=== PATIENT | female | born 1980 ===

== ENCOUNTER 2023-10-16 14:48 | Outpatient (AMB) | payer OTHER, MEDICAID, SELFPAY ==
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
[2023-10-16 15:10] VITALS: BP 116/78; PULSE 82; O2SAT 98; BMI 38.8
== END 2023-10-16 16:49 | disposition home or self-care (01) ==
PROVIDERS: Visit Provider Nurse Practitioner Family
DX: R51.9 Headache, unspecified (principal); R42 Dizziness and giddiness; M54.2 Cervicalgia; M26.609 Unspecified temporomandibular joint disorder, unspecified side; G43.109 Migraine with aura, not intractable, without status migrainosus
CPT/HCPCS: 99204

== ENCOUNTER → 2023-10-16 14:48 | Outpatient (BNVA) | payer OTHER, MEDICAID, SELFPAY | PROVIDERS: Visit Provider Nurse Practitioner Family ==

== ENCOUNTER 2023-12-11 07:23 | Outpatient (AMB) | payer OTHER, MEDICAID, SELFPAY ==
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
[2023-12-11 07:30] VITALS: BP 112/70; PULSE 86; RESP 16; O2SAT 98; BMI 38.4
== END 2023-12-11 08:13 | disposition home or self-care (01) ==
PROVIDERS: PCP Physician Assistant; Visit Provider Nurse Practitioner Family
DX: G43.109 Migraine with aura, not intractable, without status migrainosus (principal); R42 Dizziness and giddiness; M26.609 Unspecified temporomandibular joint disorder, unspecified side; M54.2 Cervicalgia
CPT/HCPCS: 99214

== ENCOUNTER → 2023-12-11 07:23 | Outpatient (BNVA) | payer OTHER, MEDICAID, SELFPAY | PROVIDERS: PCP Physician Assistant; Visit Provider Nurse Practitioner Family ==

== ENCOUNTER 2024-06-30 09:24 | Outpatient (AMB) | payer OTHER, MEDICAID, SELFPAY ==
[2024-06-30 09:33] VITALS: BMI 41.4
--- NOTE | 2024-06-30 09:33 | MHC.OFFVIS ---
Vital Signs 06/30/24 09:33 Height 4 ft 11 in Weight 205 lb BMI 41.4 Intake Visit Reasons: 7 MONTH F/U Intake Note: Patient presents for 7 month follow up. Allergies No Known Allergies Allergy (Verified 06/30/24 09:36) HPI Comments Details: 43-yr-old female presents for f/u visit for migraines. Patient seen by myself with Dr. Krishnan December 2023 started taking 7mg of prednisone daily for PMR, per PCP. She has morning pain and stiffness, shoulders hips, knees, +GUIDO+ ESR + CRP and with inflammation. Jul 2024 will f/u with [facility] Coordinator at [facility]. Pt has started Vaurum which is working well w/o s/e. She is still experiencing 3-4 times a month intense migraines, lasting longer, a few hours, can last over night into the morning. Pain with nausea and dizziness, photophobia and phonophobia and smells. Tender starts behind L. eye and spread back into the head. Vision changes, lids feel heavier, difficult to keep them open, and blurrier vision. RX changed recently. Sleep apnea, Insomnia for years still gets 6-7 hours a night, goes back to sleep, doesn't take anything to get to sleep, could not tolerate CPAP and the mask. She manages migraines with alternative methods also, caps for migraines. Pt still has R > L ear fullness, like water is in the ears. May 2024 ENT. dx with Menieres disease, she monitors salt intake and when it is worse she feels dizzy. Is prone to allergy s/s- not sure if the ear fullness fluctuates w/ allergy s/s. Baclofen 10mg qhs prn is helping. Still wakes up w/ left sided neck tightness/soreness. Can still have bruxism. Has not started using mouthguard yet. Baseline headache characteristics: Aura: Sees floaters in bilateral eyes at onset of the headache. Sometimes has visual aura of right or left seeing wavy lines or kaleidoscope- lasts a minute or so. Headache: Mod-Severe throbbing, stabbing, pressure in left side- retro-orbital, forehead through occipital and neck region a/w Photophobia, phonophobia, allodynia, nausea, dizziness, difficulty concentrating, word finding difficulties- maybe slurred speech, fatigue, activity intolerance. Postdrome: May linger [facility] Surgical History History of thyroid surgery Family History Father Diabetes HTN (hypertension) Mother Diabetes HTN (hypertension) Social History Alcohol intake: never Patient Tobacco Use Status: Never used Tobacco Review of Systems Const All systems reviewed & are unremarkable except as noted in HPI and below Physical Exam Vital Signs: BMI result Body Mass Index 41.4 Const General: cooperative and no acute distress Orientation/consciousness: patient oriented x3 Resp Effort & Inspection: normal respiratory effort and able to speak in complete sentences Neuro General: patient oriented x3 Cranial nerves: Yes CN's II-XII intact bilaterally Cognition (Neuro): normal cognition Psych Appearance: grossly normal Mental Status: mental status grossly normal Speech and movement: Normal speech and movement present Affect: normal affect Attitude: cooperative Results Reviewed Results Reviewed: MRI Normal Discussed Inspire therapy, will consider and research then f/u. Assessment & Plan Assessment & Plan (1) Migraine with aura: Code(s): G43.109 - Migraine with aura, not intractable, without status migrainosus Category: Medical Qualifiers: Status migrainosus presence: without status migrainosus Intractability: intractable Qualified Code(s): G43.119 - Migraine with aura, intractable, without status migrainosus (2) Insomnia: Code(s): G47.00 - Insomnia, unspecified Category: Medical Qualifiers: Insomnia type: unspecified Qualified Code(s): G47.00 - Insomnia, unspecified (3) Worsening headaches: Code(s): R51.9 - Headache, unspecified Category: Medical (4) Vertigo: Code(s): R42 - Dizziness and giddiness Category: Medical Plan HST- Patient continues to have insomnia, Mallampti score is 3, excessive daytime fatigue with headaches. Patient Education- Fragmented sleep can lead to migraines, patient is a good candidate for the iNspire therapy, and will send and ENT f/u for the Dise procedure after HST if patient is interested in this therapy. Migraines- will stop the Naritriptan and start her on Rizatriptan 5mg at onset of migraine, take one tablet and may wait 4 hours if it does not abort you may take one more tablet of the Rizatriptan. Do not exceed more than 2 tablets in a 24 hour period. Will Continue with Migraine Prophylaxis therapy Agovy subcut 1x / month as this is working well, has decreased her migraines from daily attacks to 3-4 per month. Orders: Orders RT home sleep study Today G43.109 - Migraine with aura, not intractable, without status migrainosus, G47.00 - Insomnia, unspecified Medications: New rizatriptan Take one tablet at the onset of migraine, if migraine does not abort may take one more tablet 4 hours later. Do not exceed more than 2 tablets in a 24 hour period. 5 mg PO Q2-4H PRN 14 tabs 6RF migraine headache 30 days Discontinued naratriptan Discontinued Reason: Doctor's Order take 1/2 - 1 tab at onset of headache; if no relief may repeat 1 tab after at least 4 hrs; (may take with Tylenol) max = 2 tabs/24 hrs orally PRN; 12 tabs 6RF migraine headache 30 days MDD 2 tabs Coding Level of Care Code Est Pt Level 4 (39641) Diagnoses Intractable migraine with aura without status migrainosus G43.119 Status migrainosus presence: without status migrainosus Intractability: intractable Insomnia, unspecified type G47.00 Insomnia type: unspecified Worsening headaches R51.9 Vertigo R42
--- OUTSIDE RECORDS SUMMARY | 2024-06-30 23:43 | XMS_ITS | Continuity of Care Document ---
Author Organization [place] - [facility], [facility] 2nd floor Address [address] [place] [address] Care Team Providers Care Room Service Manager Name Role Phone ROMERO LUND Primary Care Provider Assessment No assessment recorded. Plan of Treatment Reminders Order Date Submit Date Provider Last Modified By Organization Details Last Modified Time Details Appointments None recorded. Lab None recorded. Referral None recorded. Procedures None recorded. Surgeries shoulder arthroscopy with subacromial decompressi on and acromioplas ty (SURG) 2023 024 [email or web address] 1 Not available 4 16:35:09 Imaging None recorded. Medication Orders None recorded. Patient TargetsNo targets recorded. Patient InstructionsNo instructions recorded. Reason for Referral None Reported. Results Created Date Observation Date Name Description Value Unit Range Abnormal Flag Note LastModifiedBy Organization Detail LastModifiedTime 06/02/20 24 06/01/2024 MRI, liam korey, w/o contr ast [facility] Access ion Number : [id number] Patien t Name: Lela Verdina l Record Number : [id number] Date of : 1979 Date of Exam: 2023 Referr ing Physic hamida: Anne-Marie Lee [address] [place] [address] Exam: MR Should er (C-) CPT 63719 - Left Room Descri ption: [facility] 3.0T Clinic al Histor y: Should er pain and limite d range of motion . No histor y of injury . Techni que: MRI of the left should er was perfor med withou t intrav enous contra st. Compar ama: None. Findin gs: AC joint: Mild degene rative change s of the acromi oclavi cular joint and small subacr omial osteop hyte. Small amount of fluid within the subacr omial subdel toid bursa. Rotato r cuff: Mild supras pinatu s and infras pinatu s tendin osis. No eviden ce of rotato r cuff tear, tendon retrac tion, or muscle atroph y. Glen[place] d labrum and biceps tendon : No eviden ce of displa rosalind labral tear or para labral cyst on nonart hrogra phic evalua tion. The biceps tendon intact and the extra- articu lar segmen t is locate d in the bicipi kandice groove . Articu lar cartil age: The articu lar cartil age is of normal thickn ess. No focal defect s are seen. Bone: Alignm ent and bone marrow signal are within normal limits . No eviden ce of fractu re or bone marrow contus ion. Impres dinh: Mild AC joint arthro sis Small subacr omial osteop hyte and signs of accomp anying subacr omial- subdel toid bursit is Mild supras pinatu s tendin osis IBuck rd, MD, have review ed the images and report and concur with the reside nt, Anil grullon, titus gann. Electr onical ly Signed By: Buck George rd, MD [email or web address] [facility] ([facility]) [address], [place], [address], 06/08/2024 07:47:00 Result Notes None recorded. Procedures Surgical History Date Name Laterality Status Provider Name and Address Organization Details Recorded Time 4 Sports Shoulder completed Arslan Flor PA-C [address], [place], [address], [facility] 01/16/2024 08:36:21 4 Sports Shoulder 4&1 completed Salas Osman PA-C [address], [place], [address], [facility] 10/08/2023 15:40:51 01/27/201 7 Other completed EDELMIRA JORGENSEN [place] - [facility] 02/27/2024 14:23:03 Imaging Results None recorded. Procedure Notes None recorded. Medical Equipment None Reported. Allergies Allergen ID Allergen Name Allergen Category Reaction Reaction Severity Criticality Documentation Date Start Date Code Code System Note Provider Name and Address Organization Details Recorded Time 37804 acetamino phen / oxycodone medicatio n Not available Not available Not available 09/22/20232022 44162 3 RxNorm Not Available [facility] 12:57:11 08252 codeine medicatio n Not available Not available Not available 09/22/20232020 2670 RxNorm Not Available [facility] 12:57:11 Medications Name Sig Start Date Stop Date Status Note LastModified by Organization Details LastModified Time prednison e 10 mg tablet TAKE 1 TABLET BY MOUTH EVERY DAY active reduced to 7 MG Not Available Not Available Not Available prednison e 5 mg tablet TAKE 1 AND 1/2 TABLETS DAILY BY MOUTH active Not Available Not Available No t Available alprazola m 0.25 mg tablet TAKE 1 TABLET BY MOUTH 30 MINUTES PRIOR TO MRI, MAY REPEAT ONCE 02/26 completed Not Available Not Available Not Available amitripty line 25 mg tablet TAKE 1 TABLET BY MOUTH EVERYDAY AT BEDTIME 02/26 completed Not Available Not Available Not Available lorazepam 0.5 mg tablet TAKE 1 TABLET BY MOUTH ONCE,MICHAEL E ONE TABLET 30-45 MINUTES BEFORE MRI 02/26 completed Not Available Not Available Not Available baclofen 10 mg tablet TAKE 1 TABLET ORALLY BEDTIME FOR 30 DAYS active Not Available Not Available No t Available omeprazol e 20 mg capsule,d elayed release TAKE 1 CAPSULE BY MOUTH EVERY DAY active Not Available Not Available No t Available methylpre dnisolone 4 mg tablets in a dose pack TAKE 6 TABLETS ON DAY 1 DIRECTED ON PACKAGE AND DECREASE BY 1 TAB EACH DAY FOR A TOTAL OF 6 DAYS 02/26 completed Not Available Not Available Not Available ondansetr on 4 mg disintegr ating tablet TAKE 1 TABLET BY MOUTH EVERY 8 HOURS NEEDED 05/21 completed Not Available Not Available Not Available naratript an 2.5 mg tablet PLEASE SEE ATTACHED FOR DETAILED DIRECTIO NS active Not Available Not Available No t Available Gavilax 17 gram/dose oral powder MIX 1 SCOOP IN WATER AND DRINK BY MOUTH DAILY active Not Available Not Available No t Available baclofen 5 mg tablet TAKE 1-2 TABLETS BY MOUTH DAILY AT BEDTIME FOR 30 DAYS 01/15 completed Not Available Not Available Not Available Ajovy 225 mg/1.5 mL subcutane ous auto-inje ctor INJECT 225 MG (1.5 ML) SUBCUTAN EOUSLY ONCE FOR 30 DAYS active Not Available Not Available No t Available Vitals Date Recorded Body height Body mass index (BMI) Body weight Provider Name and Address Organization Details Last Updated DateTime 06/28/2024 147.32 cm 41.4 kg/m2 08720.29 g [facility] 06/28/2024 15:46:54 Social History Question Answer Notes LastModified by Organizat ion Details LastModified Time Tobacco Smoking Status [facility] 02/27/2024 14:23:03 How Many Times Per Week Do You Consume Alcohol? Less Than 1 Time Per Week [email or web address] Information not available 02/27/2024 Do You Or Have You Ever Used E-cigarettes Or Vape? Never Used Electronic Cigarettes [email or web address] Information not available 02/27/2024 What Is Your Relationship Status? Single [email or web address] Information not available 02/27/2024 Do You Use Any Illicit Or Recreational Drugs? No [email or web address] Information not available 02/27/2024 How Many Years Have You Smoked Tobacco? 0 [email or web address] Information not available 02/27/2024 Do You Or Have You Ever Used Any Other Forms Of Tobacco Or Nicotine? No [email or web address] Information not available 02/27/2024 Sex: Unknown Functional Status None recorded. Mental Status None recorded. Family History Nothing Reported. Medical History Condition Response Allergies/Hayfever N Coronary Artery Disease N Breathing or lung disorders N Anxiety/Depression Y Emphysema N Nerve Disorders N Thyroid Problems N COPD N Pacemaker N Kidney/Bladder Problems N Anemia N Vascular Disease N Heart Trouble N Gastrointestinal Disease N Heart Attack ([place]) N Cholesterol N Diabetes N Autoimmune disease N Bleeding Disorder N Inflammatory Joint disease N Orthotics N Arthritis N Seizures/Epilepsy N Blood Clot N AIDS/HIV N Congestive Heart Failure (CHF) N Acid Reflux (GERD) N Cancer N Stroke N Asthma Y Circulation Problems N Peripheral Vascular Disease N Sleep Apnea N Hepatitis N Heart Disease N Rheumatoid Arthritis N Arrhythmia N Pulmonary Embolism N Headaches Y Fibromyalgia N Hypertension N Osteoporosis N Gynecological HistoryNo gynecological history recorded. Obstetrics History GPAL:G 0 P 0 0 0 0 Past Encounters Encounter ID Performer Location Encounter Start Date Encounter Closed Date Diagnosis/Indication Diagnosis SNOMED-CT Code Diagnosis ICD10 Code [id number] MD Abimael Connor 2nd floor [address] [place] [address] 06/28/2024 15:43:08 06/28/2024 16:53:15 Impingement syndrome of right shoulder region 3528991328 21236 M75.42 Health Concerns Section Related Observation LastModified by Organization Detai ls LastModified Time None Recorded Concern Status LastModified by Organization Details LastModified Time None Recorded Payers Encounter Date Sequence Insurance Name Policy Number Policy Hopper Covered Member ID Hopper Member ID Guarantor Name 06/28/2024 2 [place] [facility] Lela Dobbsos [id number] Lela Spicer Velvet 06/28/2024 1 [facility] [id number] 3 Lela Dobbsos [id number] Lela Spicer Verdin Notes Date Note Type Note Provider Name and Address Organization Details Recorded Time 06/28/2024 text/html Issue: Left shoulder calcific tendonitis Interval History: 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 No specific injury that she can recall. Diagnosed with calcific tendinitis. Has had multiple cortisone injections, most recently 02/27/2024, with diminishing returns over time. Takes occasional ibuprofen for this. Went through an initial course of physical therapy when symptoms for started a few years ago. Pain felt over the lateral brachium, particularly bothersome at nighttime with sleeping and with overhead movements. Can be quite uncomfortable getting dressed. Aware of occasional clicking in the shoulder. Presents today to discuss options for more definitive management. Past family, medical, social history and review of systems have been reviewed and updated on the medical history sheet saved to the patient's chart. A 12-point review of systems is negative x12 except as noted above and/or on the medical history sheet. Examination: Pleasant 44-year-old woman in no acute distress. 4 feet 11 inches, 200 pounds. On exam of the left upper extremity, skin over the shoulder is intact. No effusion, no gross atrophy. Tender to palpation over the AC joint and along the subacromial space. Also tender over the bicipital groove. Active forward elevation 90, passive 160 with positive Neer and Santiago. Passive external rotation 75 with negative ER lag. Internal rotation L2. 5/5 strength with scaption, IR, ER, but pain throughout, particularly with empty can. Positive Yergason's. Positive Drasco's. Positive cross body adduction. Sensation intact in an axillary distribution. Fires EPL, FPL and intrinsics. Hand is warm and well-perfused. Imagin views of the left shoulder ordered and obtained at [facility] 01/16/2024 were reviewed during the visit. These demonstrate good preservation of glenohumeral and AC joint spaces. Calcium deposit adjacent to the far posterior greater tuberosity suggested on AP internal rotation view. Type II acromion. Humeral head centered on axillary view. Left shoulder MRI performed at [facility] 06/01/2024 independently reviewed by me on Ortho PACS during visit today. This demonstrates a small remnant of calcium within the far posterior infraspinatus, most visible on axial sequences. No evidence for rotator cuff tear, though quite a bit of fluid within the subacromial space, some thickening of the rotator cuff, consistent with impingement. Prominent CA ligament which closely abuts the bursal surface of the rotator cuff in this area. Type II acromion. Moderate AC arthrosis. Long head biceps tendon runs normally within the bicipital groove. No definite SLAP pathology. 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 Exam and imaging consistent with calcific tendinitis. Also having pain with biceps and AC joint testing, though no definitive findings here on MRI beyond moderate AC arthrosis. Plan: Patient has failed conservative treatment, including multiple cortisone injections and oral anti-inflammatory medications and even a course of physical therapy in the past. At this point, interested in moving forward with more definitive, surgical management. Based on MRI findings, plan for surgery would be arthroscopy with calcium excision, SAD DCE. Low suspicion for need for rotator cuff repair. Given exam findings suggestive of painful biceps/biceps anchor, will closely inspect this area intraoperatively, with biceps tenodesis to address pathology if identified here. Technical details, risks and benefits, typical downtime recovery from surgery reviewed. Patient interested in pursuing this in late July/early August. [facility] Text[employer] speech recognition efficiency miner blasting software was used to create portions of this document. An attempt at proofreading has been made to minimize errors. Please call for corrections. Anne-Marie eLe MD [address] [place] [address] [address], [place], [address], [facility] 06/28/2024 16:53:13 OBGyn Episode No OBEpisode recorded.
--- OUTSIDE RECORDS SUMMARY | 2024-06-30 23:43 | XMS_ITS | Continuity of Care Document ---
Author Organization [place] - [facility], [facility] Address [address] [place] [address] Care Team Providers Care Drip Box Tender Name Role Phone ROMERO LUND Primary Care Provider Assessment Encounter Date Assessment Date Assessment LastModified by Organization Details LastModified Time 06/09/2024 06/09/2024 Patient has been managed for migraine with neurology. Discussed her symptoms involved right sided fullness as well as fluctuating hearing, tinnitus and general imbalance with no room spinning. While some of the symptoms overlap with M??ni??re's disease, she does not have any low-frequency sensorineural hearing loss identified on her audiometric testing today. I did encourage her to become more aware of her diet with specific attention to salt intake. She has experienced positional vertigo in the past and her regular imbalance episodes are very different, she can easily tell them apart by duration as well as symptoms. She may follow-up as needed [email or web address] Not available 06/09/2024 14:01:41 Plan of Treatment Reminders Order Date Submit Date Provider Last Modified By Organization Details Last Modified Time Details Appointments None record ed. Lab None record ed. Referral None record ed. Procedures None record ed. Surgeries None record ed. Imaging None record ed. Medication Orders None record ed. Patient TargetsNo targets recorded. Patient InstructionsNo instructions recorded. Reason for Referral None Reported. Results Created Date Observation Date Name Description Value Unit Range Abnormal Flag Note LastModifiedBy Organization Detail LastModifiedTime 06/10/20 24 audio gram No observ ation record ed. BARCODE Not Available 2023 12:31:48 Result Notes None recorded. 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 , including 'globus hystericu s'; Note: Date Diagnosed : 07/26/2019 9:34 AM (F45.8) Not Available [facility] 4 02:15:22 Gastroeso phageal reflux disease without esophagit is 856603270 Active 2019 Gastro-es ophageal reflux disease without esophagit is; Note: Date Diagnosed : 07/26/2019 9:34 AM (K21.9) Not Available [facility] 4 02:16:05 Dysphagia 53422279 Active 2019 Other dysphagia ; Note: Date Diagnosed : 07/26/2019 9:39 AM (R13.19) Not Available [facility] 4 02:16:03 Pain of right temporoma ndibular joint 04305851631 173493 Active 2017 Arthralgi a of right temporoma ndibular joint; Note: Date Diagnosed : 11/20/2017 9:41 AM (M26.621) Not Available [facility] 4 02:15:58 Abnormal auditory perceptio n 63735197 Active 2023 Jasmin serrano [place] - [facility] 4 13:05:11 Dizziness and giddiness 152244422 Active 2023 LIBORIO VAZQUEZ MD [address] [place] [address] [place], [address] , [facility] - [facility] 4 14:00:00 Chronic headache disorder 352877768 Active 2023 LIBORIO VAZQUEZ MD [address] [place], [address] , [place] - [facility] 14:00:08 Problem Notes None recorded. Procedures Surgical History Date Name Laterality Status Provider Name and Address Organization Details Recorded Time 06/09/2024 Comp Audio with Tymps (32476 & 09656) completed Jasmin Hall [place] - [facility] 06/09/2024 13:05:02 Imaging Results None recorded. Procedure Notes None recorded. Medical Equipment None Reported. Medications Name Sig Start Date Stop Date Status Note LastModified by Organization Details LastModified Time prednison e 10 mg tablet TAKE 1 TABLET BY MOUTH EVERY DAY 06/09 completed Not Available Not Available Not Available prednison e 5 mg tablet TAKE 1 AND 1/2 TABLETS DAILY BY MOUTH active Not Available Not Available No t Available topiramat e 25 mg tablet 06/09 completed Medicati on ID: [id number] D uration Value: 30 Brand Name: topirama te Send Method: E-Prescr ibed Sub s Allowed: subs OK Medic ationGen ericName : topirama te Not Available Not Available Not Available alprazola m 0.25 mg tablet TAKE 1 TABLET BY MOUTH 30 MINUTES PRIOR TO MRI, MAY REPEAT ONCE 06/09 completed Not Available Not Available Not Available amitripty line 25 mg tablet TAKE 1 TABLET BY MOUTH EVERYDAY AT BEDTIME active Not Available Not Available No t Available baclofen 10 mg tablet TAKE 1 TABLET BY MOUTH EVERY DAY AT BEDTIME FOR 30 DAYS 06/09 completed Not Available Not Available Not Available omeprazol e 20 mg capsule,d elayed release TAKE 1 CAPSULE BY MOUTH EVERY DAY active Not Available Not Available No t Available methylpre dnisolone 4 mg tablets in a dose pack TAKE 6 TABLETS ON DAY 1 DIRECTED ON PACKAGE AND DECREASE BY 1 TAB EACH DAY FOR A TOTAL OF 6 DAYS 06/09 completed Not Available Not Available Not Available albuterol sulfate HFA 90 mcg/actua tion aerosol inhaler active Medicati on ID: [id number] B rand Name: albutero l sulfate Send Method: E-Prescr ibed Sub s Allowed: subs OK Medic ationGen ericName : albutero l sulfate Not Available Not Available Not Available ondansetr on 4 mg disintegr ating tablet TAKE 1 TABLET BY MOUTH EVERY 8 HOURS NEEDED active Not Available Not Available No t Available fluticaso ne propionat e 50 mcg/actua tion nasal spray,jenny pension 06/08 completed Medicati on ID: [id number] D uration Value: 30 Brand Name: fluticas one propiona te Send Method: E-Prescr ibed Sub s Allowed: subs OK Speci al Instruct ion: INHALE 2 SPRAYS IN EACH NOSTRIL QAM FOR 30 DAYS Med icationG enericNa me: fluticas one propiona te Not Available Not Available Not Available naratript an 2.5 mg tablet PLEASE SEE ATTACHED FOR DETAILED DIRECTIO NS active Not Available Not Available No t Available Vitamin D3 50 mcg (2,000 unit) tablet 07/26 completed Medicati on ID: [id number] D uration Value: 30 Reason: () Brand Name: Vitamin D3 Send Method: E-Prescr ibed Sub s Allowed: subs OK Speci al Instruct ion: TK 1 T PO QD Medic ationGen ericName : Vitamin D3 Not Available Not Available Not Available Gavilax 17 gram/dose oral powder MIX 1 SCOOP IN WATER AND DRINK BY MOUTH DAILY active Not Available Not Available No t Available Gavilax 2023 active Not Available Not Available Not Avai lable baclofen 5 mg tablet TAKE 1-2 TABLETS BY MOUTH DAILY AT BEDTIME FOR 30 DAYS 06/09 completed Not Available Not Available Not Available Ajovy 225 mg/1.5 mL subcutane ous auto-inje ctor 225 MG (1.5 ML) SUBCUTAN EOUSLY ONCE FOR 30 DAYS ADMINIST ER 225MG SC EVERY MONTH active Not Available Not Available No t Available Vitals Date Recorded Body height Body mass index (BMI) Body weight Provider Name and Address Organization Details Last Updated DateTime 06/09/2024 151.13 cm 39.5 kg/m2 51411.88 g Alma Mendenhall [place] - [facility] 06/09/2024 13:40:10 Social History None recorded. Functional Status None recorded. Mental Status None recorded. Family History Relationship Description Onset Age of this Age Resolved Age Notes LastModified by Organization Details LastModified Time Mother Hearing loss 50 Not driss ilable 06/09/2024 13:40:17 Mother Vertigo 50 Not availabl e 06/09/2024 13:40:17 Mother Diabetes mellitus 50 Not available 06/09 13:40:17 Mother Autoimmune disease 40 Not available 06/09 13:40:17 Father Migraine 20 Not availab le 06/09/2024 13:40:17 Father Vertigo 50 Not availabl e 06/09/2024 13:40:17 Father Diabetes mellitus 50 Not available 06/09 13:40:17 Medical History Condition Response Allergies/Hayfever Y Heart Problems N Anxiety Y Tonsil Infections N Emphysema N Migraines Y Thyroid Problems N Depression Y COPD N Developmental Delay N Glaucoma N Nasal or Sinus Problems N Anemia Y Immune System Disorder Y Anesthesia Complications N Heart Attack ([place]) N Other Skin Condition N Diabetes N Rhinitis N Bleeding Disorder N Food Allergy Y Hearing Loss Y Arthritis N Hyperlipidemia N Cancer N Stroke N Dementia N Nasal polyps N Asthma Y Sleep Disorder Y High Cholesterol N GERD/Reflux Y Liver Disease N Headaches Y Fibromyalgia Y Hypertension N Speech Delay N Kidney Disease N Gynecological HistoryNo gynecological history recorded. Obstetrics History GPAL:G 0 P 0 0 0 0 Past Encounters Encounter ID Performer Location Encounter Start Date Encounter Closed Date Diagnosis/Indication Diagnosis SNOMED-CT Code Diagnosis ICD10 Code [id number] LIBORIO VAZQUEZ MD [facility] [address] [address] 06/09/2024 12:24:19 06/09/2024 12:49:44 Abnormal auditory perception 95684491 H93.299 Dizziness and giddiness 011589870 R42 Chronic he adache disorder 555271029 G44.89 Health Concerns Section Related Observation LastModified by Organization Detai ls LastModified Time None Recorded Concern Status LastModified by Organization Details LastModified Time None Recorded Payers Encounter Date Sequence Insurance Name Policy Number Policy Hopper Covered Member ID Hopper Member ID Guarantor Name 06/09/2024 1 [facility] [id number] Lela Verdin [id number] Lela Verdin Notes Date Note Type Note Provider Name and Address Organization Details Recorded Time 06/09/2024 text/html 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
--- OUTSIDE RECORDS SUMMARY | 2024-06-30 23:43 | XMS_ITS | Data Portability ---
Author Organization [place] - [facility], Allergy Address [address] [address] Care Team Providers Care House Wirer Name Role Phone ROMERO LUND Primary Care [...] Details Recorded Time Otalgia of right ear 4604820519 Active 2017 Otalgia, right ear; Note: Date Diagnosed : 11/20/2017 9:39 AM (H92.01) Not Available Formerly [facility] 4 02:16:02 Otorrhea of right ear 09732014990 36716 Active 2017 Otorrhea, right ear; Note: Date Diagnosed : 11/20/2017 9:39 AM (H92.11) Not Available Former[facility] 4 02:16:03 Somatofor m disorder 00670360 Active 2019 Psychogen ic dysphagia , including 'globus hystericu s'; Note: Date Diagnosed : 07/26/2019 9:34 AM (F45.8) Not Available Former[facility] 4 02:15:22 Gastroeso phageal reflux disease without esophagit is 369485214 Active 2019 Gastro-es ophageal reflux disease without esophagit is; Note: Date Diagnosed : 07/26/2019 9:34 AM (K21.9) Not Available [facility] 4 02:16:05 Dysphagia 78858784 Active 2019 Other dysphagia ; Note: Date Diagnosed : 07/26/2019 9:39 AM (R13.19) Not Available [facility] 4 02:16:03 Pain of right temporoma ndibular joint 22270552404 580467 Active 2017 Arthralgi a of right temporoma ndibular joint; Note: Date Diagnosed : 11/20/2017 9:41 AM (M26.621) Not Available [facility] 4 02:15:58 Abnormal auditory perceptio n 30450204 Active 2023 Jasmin serrano [place] - [facility] 4 13:05:11 Dizziness and giddiness 609152369 Active 2023 LIBORIO VAZQUEZ MD [address] [place] [address],[place] [address], [place], [address] , [place] - [facility] 4 14:00:00 Chronic headache disorder 618723584 Active 2023 LIBORIO VAZQUEZ MD [address] [place] [address],[place] [address], [place], [id number] , [facility] - [facility] 14:00:08 Problem Notes None recorded. Procedures Surgical History Date Name Laterality Status Provider Name and Address Organization Details Recorded Time 06/09/2024 Comp Audio with Tymps (20622 & 60785) completed Jasmin Hall [place] - [facility] 06/09/2024 13:05:02 Imaging Results Imaging Date Name Status LastModified by Organiz ation Details LastModified Time 06/10/2024 audiogram completed BAR[facility] Information no t available 06/10/2024 12:31:48 Procedure Notes None recorded. Medical Equipment None [...] mg tablet 06/09 completed Medicati on ID: [id number] D uration Value: 30 Brand Name: topirama te Send Method: E-Prescr ibed Sub s Allowed: [facility] Not Available Not [...] tion aerosol inhaler active Medicati on ID: [id number] B rand Name: albutero l sulfate Send [...] spray,jenny pension 06/08 completed Medicati on ID: [id number] D uration Value: 30 Brand Name: fluticas [...] unit) tablet 07/26 completed Medicati on ID: [id number] D uration Value: 30 Reason: () Brand [...] Updated DateTime 06/09/2024 151.13 cm 39.5 kg/m2 54271.88 g Alma Mendenhall MA - [facility] 06/09/2024 13:40:10 Social History None recorded. [...] Emphysema N Migraines Y Thyroid Problems N Glaucoma N Depression Y COPD N Developmental Delay N Nasal or Sinus Problems N Anemia Y Immune System Disorder Y Anesthesia Complications N Heart Attack ([place]) N Other Skin Condition N Diabetes N Rhinitis N Bleeding Disorder N Food Allergy Y Arthritis N Hearing Loss Y Hyperlipidemia N Cancer N Stroke N Dementia N Nasal polyps N Asthma Y Sleep Disorder Y GERD/Reflux Y High Cholesterol N Liver Disease N Headaches Y Fibromyalgia Y Hypertension N Speech Delay N Kidney Disease N Gynecological HistoryNo gynecological history recorded. Obstetrics History GPAL:G 0 P 0 0 0 0 Past Encounters Encounter ID Performer Location Encounter Start Date Encounter Closed Date Diagnosis/Indication Diagnosis SNOMED-CT Code Diagnosis ICD10 Code [id number] LIBORIO VAZQUEZ MD [facility] [address] [address] 06/09/2024 12:24:19 06/09/2024 12:49:44 Abnormal auditory perception 86102608 H93.299 Dizziness and giddiness 848667001 R42 Chronic he adache disorder 673267510 G44.89 Health Concerns Section Related Observation LastModified by Organization Detai ls LastModified Time None Recorded Concern Status LastModified by Organization Details LastModified Time None Recorded Advance Directives Directive None Recorded Payers Encounter Date Sequence Insurance Name Policy Number Policy Hopper Covered Member ID Hopper Member ID Guarantor Name 06/09/2024 1 [facility] ([facility]) [id number] Lela Verdin [id number] Lela Verdin Notes Date Note Type Note [...] normal work in office LIBORIO VAZQUEZ MD [address] [place] [address], [place], [address], [place] - [facility] 06/09/2024 14:02:09 OBGyn Episode No OBEpisode recorded.
--- OUTSIDE RECORDS SUMMARY | 2024-06-30 23:43 | XMS_ITS | Continuity of Care Document ---
Author Organization [facility] ter Address [address] [place] [address]- Care Team Providers Care Basket Filler Name Role Phone Demetris Murillo Primary Care Physician [phone] Encounter 06/01/24 - 06/02/[address] [address] Attending Physician: Not on Staff, Attending MD Referring Physician: Not on Staff, Referring MD Encounter Type: [facility] Allergies, Adverse Reactions, Alerts Substance Criticality Severity Reaction Reaction Severity Status Percocet Active Tylenol with Codeine Active Fruit 1 Rash Active 1in raw state per pt Immunizations Given and Recorded Vaccine Date Status Refusal Reason influenza virus vaccine, inactivated 1 06/19/22 Gi kat influenza virus vaccine, inactivated 04/20/21 Rufino rded influenza virus vaccine, inactivated 04/05/20 Rufino rded influenza virus vaccine, inactivated 2 07/09/19 Gi kat influenza virus vaccine, inactivated 04/25/16 Give n influenza virus vaccine, inactivated 09/25/11 Give n SARS-CoV-2 (COVID-19) mRNA-1273 vaccine 02/01/22 R ecorded SARS-CoV-2 (COVID-19) mRNA-1273 vaccine 12/28/20 R ecorded SARS-CoV-2 (COVID-19) mRNA-1273 vaccine 12/01/20 R ecorded tetanus-diphtheria toxoids (Td) 01/26/18 Given pneumococcal 23-valent vaccine 03/21/17 Given Measles/Mumps/Rubella Virus Vaccine 08/21/16 Given tetanus/diphtheria/pertussis, acel(Tdap) 09/25/11 Given Influenza Inactive (IM) (oldterm) 05/24/08 Given hepatitis B adult vaccine 01/18/98 Given hepatitis B adult vaccine 08/21/97 Given hepatitis B adult vaccine 07/21/97 Given 1Result Comment: [facility] [id number] 2Result Comment: [facility] [id number] Medications Ajovy Autoinjector 225 mg/1.5 mL subcutaneous solution = 225 mg, Subcutaneous Injection, Every 28 days, # 1 kit, 5 Refills, Maintenance, 01/15/24 8:00:00 AM EDT, Partial fill upon patient request if the prescription is for a schedule II opioid drug. Start Date: 01/15/24 Status: Ordered Quantity: 1.0 Unit: kit Repeat number: 1 omeprazole 20 mg oral enteric coated capsule 1 capsule = 20 mg, By Mouth, Daily, # 90 capsule, 3 Refills, Maintenance, 01/21/24 5:14:00 PM EDT, [facility]/pharmacy #[id number], Partial fill upon patient request if the prescription is for a schedule II opioid drug., 151.9, cm, 01/21/24 15:33:00 EDT, Height, 89.8, kg, 03/27/23 15:39:00 EDT, Dry Weight Start Date: 01/21/24 Status: Ordered Quantity: 90.0 Unit: capsule Repeat number: 4 predniSONE 5 mg oral tablet 1.5 tablet, By Mouth, Daily, # 45 tablet, 1 Refills, Maintenance, 05/14/24 2:22:00 PM EDT, [id number], 150, cm, 04/22/24 10:27:00 EDT, Height, 92, kg, 04/19/24 17:18:00 EDT, Dry Weight Start Date: 05/14/24 Status: Ordered Quantity: 45.0 Unit: tablet Repeat number: 1 Problem List Condition Confirmation Course Effective Dates Status H ealth Status Informant Asthma due to seasonal allergies Confirmed Active Atypical chest pain Confirmed Active Chronic fatigue Confirmed Active Family history of cancer Confirmed Active Goiter Confirmed Active History of abnormal cervical Pap smear Confirmed Active Joint pain Confirmed Active Mastodynia, menstrual, left breast Confirmed 04/27/10 Active Migraines Confirmed Active Obesity (BMI 30-39.9) Confirmed Active Women's annual routine gynecological examination Confirmed Active Major depression, recurrent Confirmed Active Severe obesity Confirmed Active Results Radiology Reports * Exam Date Time Procedure Performing Provider Status 06/01/24 9:31 PM MRI Joint Ext Upper W/O Contrast Left Auth (Verified) Notes: (MRI Joint Ext Upper W/O Contrast Left) Reason For Exam: Reason For Exam: M25.512 - Pain in left shoulder, G89.29 - Other chronic pain, , L shldr mri w/o contrast ? RCT;Reason For Exam: M25.512 - Pain in left shoulder, G89.29 - Other chronic pain, , L shldr mri w/o contrast ? RCT RESULT: MRI Joint Ext Upper W/O Contrast Left [facility] VISIT NUMBER :[id number] Patient Name: Tamara Jackson Date of : 1980 Date of Exam: 06-01-2024 Referring Physician: Anne-Marie Lee [address] [place] [address] Exam: MR Shoulder (C-) CPT 67414 - Left Room Description: [facility] 3.0T Clinical History: Shoulder pain and limited range of motion. No history of injury. Technique: MRI of the left shoulder was performed without intravenous contrast. Comparison: None. Findings: AC joint: Mild degenerative changes of the acromioclavicular joint and small subacromial osteophyte. Small amount of fluid within the subacromial subdeltoid bursa. Rotator cuff: Mild supraspinatus and infraspinatus tendinosis. No evidence of rotator cuff tear, tendon retraction, or muscle atrophy. Glenoid labrum and biceps tendon: No evidence of displaced labral tear or para labral cyst on nonarthrographic evaluation. The biceps tendon intact and the extra-articular segment is located in the bicipital groove. Articular cartilage: The articular cartilage is of normal thickness. No focal defects are seen. Bone: Alignment and bone marrow signal are within normal limits. No evidence of fracture or bone marrow contusion. Impression: Mild AC joint arthrosis Small subacromial osteophyte and signs of accompanying subacromial-subdeltoid bursitis Mild supraspinatus tendinosis I, Buck Barreto MD, have reviewed the images and report and concur with the resident, Anil Villatla's, findings. Electronically Signed By: Buck Barreto MD Dictated By: Not on Staff , LULÚ SHELTON Dictated Date/Time: 06/02/24 11:12 a Reviewed By: Not on Staff , LULÚ SHELTON Signed By: Not on Staff , LULÚ SHELTON Signed Date/Time: 06/02/24 11:12 am Transcribed By: TANK Transcribed Date/Time: 06/02/24 11:12 am Social History Social History Type Response Smoking Status Never (less than 100 in lifetime) entered on: 03/14/21 Sex Sex Representation Female (finding) Patient Care team information Care Team Personnel Name: Demetris Murillo Position: S PCO Associate Professional Member Role: PCP Address: [address] [place] [address] Telecom: Care Team Related Persons Name: XAVIER JACKSON Name: DIMAS STANLEY Insurance Providers Guarantor name: TAMARA RENETTA Health Plan Information #: 1 Payer: [facility] Member Number: NA Policy Number: NA Group Number: NA Health Plan Information #: 2 Payer: [place] Member Number: NA Policy Number: NA Group Number: NA
--- OUTSIDE RECORDS SUMMARY | 2024-06-30 23:43 | XMS_ITS | Data Portability ---
Author Organization MONICA Victor M Esparza Tnartemio [facility], [facility] Address [address] [place] [address] Care Team Providers Care Embroidery Worker Name Role Phone KEVONROMERO MAR Primary Care Provider Assessment No assessment recorded. Plan of Treatment Reminders Order Date Submit Date Provider Last Modified By Organization Details Last Modified Time Details Appointments None recorded. Lab None recorded. Referral None recorded. Procedures None recorded. Surgeries shoulder arthroscopy with subacromial decompressi on and acromioplas ty (SURG) 2023 024 [email or web address] 1 Not available 4 16:35:09 Imaging XR, shoulder, 2 or more view 2023 024 nikko [facility], [address], [facility] [address], [place], [address], 4 11:20:35 Medication Orders None recorded. Patient TargetsNo targets recorded. Patient InstructionsNo instructions recorded. Reason for Referral None Reported. Results Created Date Observation Date Name Description Value Unit Range Abnormal Flag Note LastModifiedBy Organization Detail LastModifiedTime 01/16/20 24 01/16/2024 XR, shoul korey, 2 or more view http:/ [email or web address] ?Encry pted=s hAaTro YD8dLq bEUv6g %2BXZw aYqtaq 0bqfl% 2Fg9IQ a4ajBk vP9nXo QUaueC m3YtLR FvZlgJ JJ8mAn HZtai3 0o2050 AC0Kpa nWGUqr eUC8mr 84%3D INTERFACE [facility] [address], [place], [address], 01/16/2024 08:48:03 01/16/20 24 01/16/2024 XR, liam nair, 2 or more view [email or web address] ?Encry pted=s hAaTro YD8dLq bEUv6g %2BXZw aYqtaq 0bqfl% 2Fg9IQ a4ajBk vP9nXo QUaueC m3YtLR FvZlgJ JJ8mAn HZtai3 6y0973 AC0Kpa nWGUqr eUC8mr 84%3D INTERFACE [facility] [address], [place], [address], 01/16/2024 08:48:05 06/02/20 24 06/01/2024 MRI, liam nair, w/o contr ast [facility] Access ion Number : [id number] Patien t Name: Lela Verdina sachi Record Number : [id number] Date of : 1979 Date of Exam: 2023 Referr ing Physic hamida: Anne-Marie Lee [address] [facility] [place] [address] Exam: MR Should er (C-) CPT 52672 - Left Room Descri ption: [facility] 3.0T Clinic al Histor y: Should er [...] is Mild supras pinatu s tendin osis I, Buck George rd, MD, have review ed the images and report and concur with the reside nt, Anil grullon, titus gann. Electr onical ly Signed By: Buck George rd, MD [email or web address] [facility] ([facility]) [address], [place], [address], 06/08/2024 07:47:00 Result Notes None recorded. Procedures Surgical History Date Name Laterality Status Provider Name and Address Organization Details Recorded Time 4 Sports Shoulder completed Arslan Flor PA-C [address], [place], [address], [facility] 01/16/2024 08:36:21 4 Sports Shoulder 4&1 completed Salas Osman PA-C [address], [place], [address], [facility] 10/08/2023 15:40:51 7 Other completed [facility] 02/27/2024 14:23:03 Imaging Results Imaging Date Name Status LastModified by Organiz ation Details LastModified Time 01/16/2024 XR, shoulder, 2 or more view completed INTERFACE [facility] [address], [place], [address], 01/16/2024 08:48:03 01/16/2024 XR, shoulder, 2 or more view completed INTER[facility] [address], [place], [address], 01/16/2024 08:48:05 06/01/2024 MRI, shoulder, w/o contrast completed [email or web address] [facility] ([facility]) [address], [place], [address], 06/08/2024 07:47:00 Procedure Notes None recorded. Medical Equipment None Reported. Allergies Allergen ID Allergen Name Allergen Category Reaction Reaction Severity Criticality Documentation Date Start Date Code Code System Note Provider Name and Address Organization Details Recorded Time 77218 acetamino phen / oxycodone medicatio n Not available Not available Not available 09/22/20232022 61112 3 RxNorm Not Available [facility] 12:57:11 19456 codeine medicatio n Not available Not available Not available 09/22/20232020 2670 RxNorm Not Available [facility] 12:57:11 Medications Name Sig Start [...] and Address Organization Details Last Updated DateTime 10/08/2023 147.32 cm 41.4 kg/m2 37270.29 g Quyen Baker [facility] 10/08/2023 15:31:14 Date Recorded Body height Body mass index (BMI) Body weight Provider Name and Address Organization Details Last Updated DateTime 01/16/2024 147.32 cm 41.4 kg/m2 64805.29 g EDELMIRA [facility] 01/16/2024 08:38:21 Date Recorded Body height Body mass index (BMI) Body weight Provider Name and Address Organization Details Last Updated DateTime 02/27/2024 147.32 cm 41.4 kg/m2 09325.29 g EDELMIRA [facility] 02/27/2024 14:23:11 Date Recorded Body height Body mass index (BMI) Body weight Provider Name and Address Organization Details Last Updated DateTime 05/21/2024 147.32 cm 41.4 kg/m2 62783.29 g MT FAIRBANKS [facility] 05/21/2024 13:59:57 Date Recorded Body height Body mass index (BMI) Body weight Provider Name and Address Organization Details Last Updated DateTime 06/28/2024 147.32 cm 41.4 kg/m2 76852.29 jennifer AMOR TIKI [facility] 06/28/2024 15:46:54 Social History Question Answer Notes LastModified by Organizat ion Details LastModified Time Tobacco Smoking Status Never Smoker EDELMIRA JAMEEL serrano [facility] 02/27/2024 14:23:03 How Many Times Per Week Do You Consume Alcohol? Less Than 1 Time Per Week [email or web address] Information not available 02/27/2024 Do You Or Have You Ever Used E-cigarettes Or Vape? Never Used Electronic Cigarettes [email or web address] Information not available 02/27/2024 What Is Your Relationship Status? Single [email or web address] Information not available 02/27/2024 Do You Use Any Illicit Or Recreational Drugs? No [email or web address] Information not available 02/27/2024 How Many Years Have You Smoked Tobacco? 0 [email or web address] Information not available 02/27/2024 Do You Or Have You Ever Used Any Other Forms Of Tobacco Or Nicotine? No [email or web address] Information not available 02/27/2024 Sex: Unknown Functional Status None recorded. Mental Status None recorded. Family History Nothing Reported. Medical History Condition Response Allergies/Hayfever N Coronary Artery Disease N Anxiety/Depression Y Breathing or lung disorders N Emphysema N Nerve Disorders N Thyroid Problems N COPD N Pacemaker N Anemia N Kidney/Bladder Problems N Vascular Disease N Heart Trouble N Heart Attack ([place]) N Gastrointestinal Disease N Cholesterol N Diabetes N Autoimmune disease [...] Diagnosis/Indication Diagnosis SNOMED-CT Code Diagnosis ICD10 Code [id number] AVERY Leigh [address] [place] [address] 10/08/2023 15:24:37 10/27/2023 10:50:50 Carpal tunnel syndrome of right wrist 2813964643 89957 G56.01 [id number] Arslan Flor PA-C [place] [address] [place] [address] 01/16/2024 08:31:45 01/16/2024 09:01:18 Calcific tendinitis of left shoulder 9954623437 57273 M75.32 [id number] Arslan Flor PA-C [place] [address] [place] [address] 02/27/2024 14:14:21 03/25/2024 09:30:51 Calcific tendinitis of left shoulder 9349254755 54204 M75.32 [id number] Anne-Marie Lee MD [facility] [address] [place] [address] 05/21/2024 13:41:02 06/15/2024 13:39:09 Calcific tendinitis of left shoulder 7177626122 02855 M75.32 [id number] MD Bryan [facility] [address] [place] [address] 06/28/2024 15:43:08 06/28/2024 16:53:15 Impingement syndrome of right shoulder region 7725748158 18675 M75.42 Health Concerns Section Related Observation LastModified by Organization Detai ls LastModified Time None Recorded Concern Status LastModified by Organization Details LastModified Time None Recorded Advance Directives Directive None Recorded Payers Encounter Date Sequence Insurance Name Policy Number Policy Hopper Covered Member ID Hopper Member ID Guarantor Name 10/08/2023 2 [place] Lela M Verdin [id number] Lela M Verdin 10/08/2023 1 [facility] INDEMNITY PLAN - [facility] [id number] Lela M Verdin [id number] Lela M Verdin 01/16/2024 2 [place] Lela M Verdin [id number] Lela M Verdin 01/16/2024 1 [employer] [facility] (PP[facility] [id number] Lela M Verdin [id number] Lela M Verdin 02/27/2024 2 [place] Lela M Verdin [id number] Lela Verdin 02/27/2024 1 [facility] (O) [id number] 73 Lela Dobbsos [id number] Lela Verdin 05/21/2024 2 [place] [facility] Lela Verdin [id number] Lela Verdin 05/21/2024 1 [facility] (O) [id number] 73 Lela Dobbsos [id number] Lela Verdin 06/28/2024 2 [place] [facility] Lela Dobbsos [id number] Lela Verdin 06/28/2024 1 [facility] ([facility]) [id number] 73 Lela Dobbsos [id number] Lela Verdin Notes Date Note Type Note Provider Name and Address Organization Details Recorded Time 10/08/2023 text/html I am seeing the patient today under the supervision of Dr. Sams who was available but who did not see the patient. Diagnosis: Mild Right carpal tunnel syndromeCalcific tendinitiis, left shoulder, status post cortisone injection February 2023 HPI: 43-year-old female here for Reevaluation. She had an EMG on 09/22/2023 that confirm mild right carpal tunnel syndrome. She reports that her symptoms are minimal.. The patient is complaining of intermittent numbness and tingling Right hand. Occasional noocturnal symptomms. She is not complaining of left shoulder pain. She has a history of calcific tendinitis. She did well after a cortisone injection. She is complaining of increased pain with range of motion. Past family, medical, social history and review of systems has been reviewed, updated and signed by me and is located in the patient? s chart. Examination: patient is alert, no acute distress. Non-antalgic gait. Vital signs per nursing intake sheet. Examination of bilateral wrists reveals no soft tissue swelling, erythema, ecchymosis. ROM of the elbow, forearm, wrist and digits intact. Sensibility intact radial, median and ulnar nerve innervated distribution to light touch. 1+ capillary refill. 2+ radial pulse. Phalen's test and median nerve compression test cause pain to her right hand. Left shoulder- A+O x3 non antalgic gaitNo soft tissue swelling, erythema, ecchymosisNo atrophy of the supraspinatus or infraspinatus fossasNo TTP distal clavicle, ACJ, acromion+ Santiago signFF 90 degrees and Rwchwvwko98 degreesExternal rotation degrees 40Unable to Internal rotation4/5 strength Abduction/internal rotation to resistance4/5 strength Ext rotation to resistance5/5 strength Internal rotation to resistance / belly press testingN/V intact Impression/Plan: Findings and situation were discussed. Treatment options were discussed. Patient will proceed with observation. She provided that the Velcro wrist for nighttime splinting. She was provided with a carpal tunnel handout. In regards to her left shoulder. She like to proceed with a cortisone steroid injection. Under aseptic tech- 10cc 0.5 % marcaine 80 mg kenalog Of Kenalog 40were injected into the subacromial space left shoulder. Patient tolerated the procedure well. Postinjection percautions discussed.She will follow up in a few weeks if no improvement Salas Osman PA-C [address] [facility] [address], [place], [address], [facility] 10/08/2023 15:41:09 01/16/2024 text/html I am seeing the patient today under the supervision of Dr. Lee who was available but who did not see the patient.REASON FOR VISITPatient comes to the office with known history of calcific tendinitis of the left shoulder. Previously had a cortisone injection 3 months ago with excellent benefit. Recently has noted recurrence of symptoms and requests repeat injection. The patient has done well with conservative management for their shoulder pain. Recently reports increasing discomfort over the past several weeks without injury. Pain is generalized about the shoulder and discomfort is noted at night. This patient was recently diagnosed with PMR and is currently on low-dose prednisone. She has referral into see a coffee grower.PAST MEDICAL/SURGICAL HISTORYCurrent medications per intake sheet.PHYSICAL FINDINGSThe patient is well appearing, in no apparent distress, alert and oriented to person, place and time. Gait is symmetric. No significant swelling, warmth or erythema about either shoulder.Right uninvolved shoulder exam: ROM full, 5/5 strength including rotator cuff and periscapular musculature. Good Muscle bulk and strength without atrophy. No evidence of instability of the shoulder. Negative impingement signs. Negative AC joint tenderness. Negative Speed's, Negative O'briens, Negative Kae.Left shoulder exam : ROM forward elevation 160 degrees with altered mechanics, ER 45, IR back pocket there is mild tenderness to palpation about the shoulder, moderate crepitus through mid range manipulations. 4/5 strength of the shoulder with ER, Forward flexion. Negative belly press test. Minimal tenderness overlying AC joint.Cervical Exam demonstrates limited ROM without radicular symptoms.Peripheral, vascular, lymphatic examination, skin, neurologic coordination, reflexes, sensation are within normal limits. Radiographic exam: 4 views of the left shoulder are ordered and reviewed in the office today. AP, Grashey, outlet and axillary views are all obtained. These are notable for multilobulated calcific tendinosis posterior aspect of the humeral head in the area of infraspinatus tendon insertion. No significant glenohumeral arthritis and only mild AC joint disease.ASSESSMENT calcific tendinitis of the left shoulder.PLANThe patient has done well with conservative management in regards to the shoulder. Continued conservative management recommended. Moderating activities with the upper extremity recommended also.Patient was offered repeat cortisone injection today which she agrees to. Alternative treatment options discussed. Patient tolerated the injection well. Moderating activities with the upper extremity recommended. The patient will follow up as symptoms require going forward.[facility] speech recognition public health veterinarian software was used to create portions of this document. An attempt at proofreading has been made to minimize errors. Please call for corrections Arslan Flor PA-C [address] [place] [address] [address] [facility], [place], [address], [facility] 01/16/2024 08:59:18 02/27/2024 text/html I am seeing the patient today under the supervision of Davian who was available but who did not see the patient.HPI: This patient is a pleasant 43-year-old female with history of calcific tendinitis of the left shoulder. She has had 3 previous cortisone injections. The first injection was helpful for 6 months, second injection helpful for 3 months and most recent injection only helpful for 6 weeks. She returns with complaint of recurrent pain. Would like to move forward with more definitive management.Past family, medical, social history and review of systems has been reviewed, updated and is located in the patient? s chart.Examination:The patient is well appearing and in no apparent distress. Alert and oriented x3. Gait is symmetric. Near normal active and passive range of motion of the shoulder. Pain with provocative maneuvers and with strength testing. Elbow, wrist and hand move well. Lepidopterist strength intact.X-rays from previous visit reviewed today at [facility] showing large amount of multiloculated calcific deposit posterior aspect of the humeral head.Impression: Calcific tendinosis of the left shoulderPlan: Patient has failed to respond to appropriate conservative measures. She is having recurrent pain and symptoms. Recommendation at this time is for surgical consultation. I have arranged an appointment with Dr. Lee to discuss arthroscopy and calcium removal. Arslan Flor PA-C [address] [facility] [address], [place], [address], 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 Positive Yergason's. Positive Columbus's. Positive cross body adduction. Sensation intact in an axillary distribution. Fires EPL, FPL and intrinsics. Hand is warm and well-perfused. Imagin views of the left shoulder ordered and obtained at [facility] 01/16/2024 were reviewed during the visit. These demonstrate good preservation of glenohumeral and AC joint spaces. Calcium deposit adjacent to the far posterior greater tuberosity suggested on AP internal rotation view. Type II acromion. Humeral head centered on axillary view. 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 X-rays consistent with calcific tendinitis. On exam today, also having pain with biceps and AC joint testing. Plan: Patient has failed conservative treatment, including multiple cortisone injections and oral anti-inflammatory medications and even a course of physical therapy in the past. At this point, interested in moving forward with more definitive, surgical management. Before pursuing surgery, I would like to have her go for an MRI to get a better sense of size and position of calcium deposit, likelihood for need for rotator cuff repair after removal of calcium deposit, and assessment of biceps for concomitant pathology given positive findings on exam today. All of this will help me counselor dormitory her about what her surgery may entail and what her recovery will look like. We will plan to see the patient back once the MRI is done to review the results and talk about next steps based on the findings. [facility] speech recognition public health veterinarian software was used to create portions of this document. An attempt at proofreading has been made to minimize errors. Please call for corrections. Anne-Marie Lee MD [address] [place], [place] [address], [place], [address], 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 Positive Yergason's. Positive Columbus's. Positive cross body adduction. Sensation intact in an axillary distribution. Fires EPL, FPL and intrinsics. Hand is warm and well-perfused. Imagin views of the left shoulder ordered and obtained at [facility] 01/16/2024 were reviewed during the visit. These demonstrate good preservation of glenohumeral and AC joint spaces. Calcium deposit adjacent to the far posterior greater tuberosity suggested on AP internal rotation view. Type II acromion. Humeral head centered on axillary view. Left shoulder MRI performed at [facility] 06/01/2024 independently reviewed by me on [...] groove. No definite SLAP pathology. 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 [facility] speech recognition public health veterinarian software was used to create portions of this document. An attempt at proofreading has been made to minimize errors. Please call for corrections. Anne-Marie Lee MD [address] [facility] [address], [place], [address], [facility] 06/28/2024 16:53:13 OBGyn Episode No OBEpisode recorded.
--- OUTSIDE RECORDS SUMMARY | 2024-06-30 23:43 | XMS_ITS | Continuity of Care Document ---
Author Organization [facility] Address [address] [place] [address]- Care Team Providers Care House Wirer Helper Name Role Phone Demetris Murillo Primary Care Physician Encounter [facility] Date(s): 05/13/24 - 06/12/24 [facility] [address] [place] [address]- Encounter Type: Triage Allergies, Adverse Reactions, Alerts Substance Criticality Severity [...] B adult vaccine 07/21/97 Given 1Result Comment: [facility] 88504-132-00 2Result Comment: [facility] 45427-495-48 Medications Ajovy Autoinjector 225 mg/1.5 mL subcutaneous [...] 3 Refills, Maintenance, 01/21/24 5:14:00 PM EDT, [facility]/pharmacy #[id number], Partial fill upon patient request [...] Maintenance, 05/14/24 2:22:00 PM EDT, [facility], 150, cm, 04/22/24 10:27:00 EDT, Height, 92, [...] recurrent Confirmed Active Severe obesity Confirmed Active Social History Social History Type Response Smoking Status Never (less than 100 in lifetime) entered on: 03/14/21 Sex Sex Representation Female (finding) Patient Care team information Care Team Personnel Name: Demetris Murillo Position: S PCO Associate Professional Member Role: PCP Address: [address] [place] [id number] Telecom: Care Team Related Persons Name: XAVIER JACKSON Name: DIMAS STANLEY Insurance Providers Guarantor name: TAMARA JACKSON Health Plan Information #: 1 Payer: [facility] Member Number: NA Policy Number: NA Group Number: NA Health Plan Information #: 2 Payer: [facility] Member Number: NA Policy Number: NA Group Number: NA
--- OUTSIDE RECORDS SUMMARY | 2024-06-30 23:43 | XMS_ITS | Continuity of Care Document ---
Author Organization [place] - [facility] [place] Clinical Address [address] [place] [address] Care Team Providers Care Environmental Specialist Name Role Phone KEVONROMERO Primary Care Provider Assessment No assessment recorded. [...] Detail LastModifiedTime 06/02/20 24 06/01/2024 MRI, liam nair, w/o contr ast [facility] Access ion Number : [id number] Patien t Name: Lela Verdin Record Number : [id number] Date of : 1979 Date of Exam: 2023 Referr ing Physic hamida: Anne-Marie eLe [address] [place] [address] Exam: MR Should er (C-) CPT 05488 - Left Room Descri ption: [facility] Verio 3.0T Clinic al Histor y: Should er [...] ly Signed By: Buck George rd, MD [address] [facility] [address] [facility], [place], [address], 06/08/2024 07:47:00 Result Notes None recorded. Procedures Surgical History Date Name Laterality Status Provider Name and Address Organization Details Recorded Time 4 Sports Shoulder completed Arslan Flor PA-C [address], [place], [address], [facility] 01/16/2024 08:36:21 4 Sports Shoulder 4&1 completed Salas Osman PA-C [address], [place], [address], [facility] 10/08/2023 15:40:51 7 Other completed [facility] 02/27/2024 14:23:03 Imaging Results None recorded. Procedure Notes None recorded. Medical Equipment None Reported. Allergies Allergen ID Allergen Name Allergen Category Reaction Reaction Severity Criticality Documentation Date Start Date Code Code System Note Provider Name and Address Organization Details Recorded Time 53057 acetamino phen / oxycodone medicatio n Not available Not available Not available 09/22/20232022 67059 3 RxNorm Not Available [facility] 4 12:57:11 49618 codeine medicatio n Not available Not available Not available 09/22/20232020 2670 RxNorm Not Available [facility] 4 12:57:11 Medications Name Sig Start Date Stop [...] Updated DateTime 05/21/2024 147.32 cm 41.4 kg/m2 47251.29 g [place] [facility] 05/21/2024 13:59:57 Social History Question Answer Notes LastModified by Organizat ion Details LastModified Time Tobacco Smoking Status Never Smoker EDELMIRA serrano [facility] 02/27/2024 14:23:03 How Many Times Per Week Do You Consume Alcohol? Less Than 1 Time Per Week [email or web address] Information not available 02/27/2024 Do You Or Have You Ever Used E-cigarettes Or Vape? Never Used Electronic Cigarettes [email or web address] Information not available 02/27/2024 What Is Your Relationship Status? Single [email or web address] Information not available 02/27/2024 Do You Use Any Illicit Or Recreational Drugs? No [email or web address] Information not available 02/27/2024 How Many Years Have You Smoked Tobacco? 0 Information not available 02/27/2024 Do You Or Have You Ever Used Any Other Forms Of Tobacco Or Nicotine? No Information not available 02/27/2024 Sex: Unknown Functional Status None recorded. Mental Status None recorded. Family History Nothing Reported. Medical History Condition Response Allergies/Hayfever N Coronary Artery Disease N Breathing or lung disorders N Anxiety/Depression Y Emphysema N Nerve Disorders N Thyroid Problems N COPD N Pacemaker N Kidney/Bladder Problems N Anemia N Vascular Disease N Heart Trouble N Heart Attack (OR) N Gastrointestinal Disease N Cholesterol N Diabetes N Autoimmune disease N Inflammatory Joint disease N Bleeding Disorder N Orthotics N Seizures/Epilepsy N Arthritis N Blood Clot N AIDS/HIV N Congestive Heart Failure (CHF) N Acid Reflux (GERD) N Cancer N Stroke N Asthma Y Circulation Problems N Peripheral Vascular Disease N Sleep Apnea N Hepatitis N Heart Disease N Rheumatoid Arthritis N Pulmonary Embolism N Arrhythmia N Headaches Y Fibromyalgia N Hypertension N Osteoporosis N Gynecological HistoryNo gynecological history recorded. Obstetrics History GPAL:G 0 P 0 0 0 0 Past Encounters Encounter ID Performer Location Encounter Start Date Encounter Closed Date Diagnosis/Indication Diagnosis SNOMED-CT Code Diagnosis ICD10 Code [id number] MD [facility] [address] [place] [address] 05/21/2024 13:41:02 06/15/2024 13:39:09 Calcific tendinitis of left shoulder [id number] 17139 M75.32 Health Concerns Section Related Observation LastModified by Organization Detai ls LastModified Time None Recorded Concern Status LastModified by Organization Details LastModified Time None Recorded Payers Encounter Date Sequence Insurance Name Policy Number Policy Hopper Covered Member ID Hopper Member ID Guarantor Name 05/21/2024 2 [place] [facility] Lela Dobbsos [id number] Lela Spicer Verdin 05/21/2024 1 [facility] ([facility] [id number] Lela Dobbsos [id number] Lela Verdin Notes Date Note Type Note Provider Name and Address Organization Details Recorded Time 05/21/2024 text/html Issue: Left shoulder calcific tendonitis Interval History: 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 Positive Yergason's. Positive Orleans's. Positive cross body adduction. Sensation intact in an axillary distribution. Fires EPL, FPL and intrinsics. Hand is warm and well-perfused. Imagin views of the left shoulder ordered and obtained at [facility] 01/16/2024 were reviewed during the visit. These demonstrate good preservation of glenohumeral and AC joint spaces. Calcium deposit adjacent to the far posterior greater tuberosity suggested on AP internal rotation view. Type II acromion. Humeral head centered on axillary view. 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 All of this will help me counseling program leader her about what her surgery may entail and what her recovery will look like. We will plan to see the patient back once the MRI is done to review the results and talk about next steps based on the findings. [employer] speech recognition rehabilitation therapy technician software was used to create portions of this document. An attempt at proofreading has been made to minimize errors. Please call for corrections. Anne-Marie Lee MD [address] [place] [address], [place], [address], [facility] 05/21/2024 14:41:38 OBGyn Episode No OBEpisode recorded.
== END 2024-06-30 10:05 | disposition home or self-care (01) ==
PROVIDERS: PCP Physician Assistant; Visit Provider Physician Assistant Medical
DX: G43.119 Migraine with aura, intractable, without status migrainosus (principal); G47.00 Insomnia, unspecified; R51.9 Headache, unspecified; R42 Dizziness and giddiness
CPT/HCPCS: 99214

== ENCOUNTER 2024-10-05 15:22 | Outpatient (AMB) | payer OTHER, MEDICAID, SELFPAY ==
--- NOTE | 2024-10-05 15:25 | MHC.OFFVIS ---
Vital Signs 10/05/24 15:27 Height 4 ft 11 in Weight 199 lb BMI 40.2 Pulse 82 Pulse Source Pulse Oximeter Pulse Oximetry (%) 97 Oxygen Delivery Method Room Air Intake Visit Reasons: 3 mo follow up Intake Note: Patient presents for 3 month follow up migraines. Allergies No Known Allergies Allergy (Verified 10/05/24 15:27) HPI Comments Details: 44-yr-old female presents for a f/u visit due to chronic migraines. Her insurance changed and she was unable to complete her PSG, has a prior h/o sleep apnea. She snores loudly at night and is fatigued most days due to fragmented sleep and 3-5 arousals. She started taking 5mg of Prednisone per her Operations Advisor, Dr. Charles, she feels less pain now. She still has some morning stiffness in the shoulders, hips and knees, bilaterally. She was diagnosed with pseudogout in the left toe and knee. Migraines are better controlled on Ajovy, still 3-4 x a month, now cyclic and more when she misses meals and shorter duration. She still has photophobia/ phonophobia and sensitivity to smells with dizziness, and blurry vision, heavy eye lids and difficulty keeping them open. The pain starts in the back of the head L. sided and tender to touch, and she now uses a migraine cap, no longer lasts through the night. She wakes up with l. sided neck tigtness which improves with Baclofen 10mg PO PRN. She also has Menieres disease, her ears feel full mainly R>L, as if there is fluid in her ears. She completed Vestibular Therapy for BPPV and now mangages her salt and caffeine intake. She has allergies and take OTC Zyrtec PRN. She has bruxism and now has a mouth-guard and will f/u with the dentist. Her vision is blurry and c/o of flashing lights, wavy lines when she goes out side into the sun, notices she is always needing to wear sunglasses and sees electric like flashes of light. She has a f/u with the opthamologist. BMI is elevated and she motivated to lose weight. Mood is okay. Baseline headache characteristics: Aura: Sees floaters in bilateral eyes at onset of the headache. Sometimes has visual aura of right or left seeing wavy lines or kaleidoscope- lasts a minute or so. Headache: Mod-Severe throbbing, stabbing, pressure in left side- retro-orbital, forehead through occipital and neck region a/w Photophobia, phonophobia, allodynia, nausea, dizziness, difficulty concentrating, word finding difficulties- maybe slurred speech, fatigue, activity intolerance. PFSH Surgical History History of thyroid surgery Family History Father Diabetes HTN (hypertension) Mother Diabetes HTN (hypertension) Social History Alcohol intake: never Patient Tobacco Use Status: Never used Tobacco Review of Systems Const All systems reviewed & are unremarkable except as noted in HPI and below Physical Exam Vital Signs: Last Vital Signs Pulse 82 10/05/24 15:27 Pulse Ox 97 10/05/24 15:27 Oxygen Delivery Method Room Air 10/05/24 15:27 BMI result Body Mass Index 40.2 Const General: cooperative and no acute distress Orientation/consciousness: patient oriented x3 Resp Effort & Inspection: normal respiratory effort and able to speak in complete sentences Neuro General: patient oriented x3 Cranial nerves: Yes CN's II-XII intact bilaterally Cognition (Neuro): normal cognition Psych Appearance: grossly normal Mental Status: mental status grossly normal Speech and movement: Normal speech and movement present Affect: normal affect Attitude: cooperative Assessment & Plan Assessment & Plan (1) Sleep difficulties: Code(s): G47.9 - Sleep disorder, unspecified Category: Medical (2) Migraine with aura: Code(s): G43.109 - Migraine with aura, not intractable, without status migrainosus Category: Medical Qualifiers: Status migrainosus presence: without status migrainosus Intractability: intractable Qualified Code(s): G43.119 - Migraine with aura, intractable, without status migrainosus (3) Insomnia: Code(s): G47.00 - Insomnia, unspecified Category: Medical Qualifiers: Insomnia type: unspecified Qualified Code(s): G47.00 - Insomnia, unspecified (4) Worsening headaches: Code(s): R51.9 - Headache, unspecified Category: Medical (5) Vertigo: Comment: DDX PMR? Dermatomyositis? RA/ Osteo Arthritis /psuedo- gout and gout? Fibromyalgia, MG Code(s): R42 - Dizziness and giddiness Category: Medical Plan HST- fragmented sleep pattern, Mallampti score is 3. Migraines Continue Rizatriptan 5mg PO as a preventative, at onset of migraine, take one tablet and may wait 4 hours if it does not abort you may take one more tablet of the Rizatriptan. Do not exceed more than 2 tablets in a 24 hour period. and Agovy as a chronic migraine maintenance medication. BMI is elevated weight management for nutritional intake and expenditure of calories and meal planning. [facility] diet and lifestyle changes Orders: Orders RT home sleep study Today G47.19 - Other hypersomnia Referrals Medical Weight Management Referral E66.01 - Morbid (severe) obesity due to excess calories Medications: Changed From fluticasone propionate 50 mcg/actuation administer into each nostril 1 spray intranasal Q12H G47.9 - Sleep disorder, unspecified To fluticasone propionate 50 mcg/actuation administer into each nostril as needed for allergies 1 spray intranasal Q12H 16 grams 3RF allergies MDD 1 spray in each nostril G47.9 - Sleep disorder, unspecified Refilled rizatriptan Take one tablet at the onset of migraine, if migraine does not abort may take one more tablet 4 hours later. Do not exceed more than 2 tablets in a 24 hour period. 5 mg PO Q2-4H 30 days PRN 14 tabs 6RF migraine headache Patient Instructions: Patient Education- Fragmented sleep can lead to migraines, patient is a good candidate for the iNspire therapy, and will send and ENT f/u for the Dise procedure after HST if patient is interested in this therapy. Sleep Hygiene provided setting a good sleep wake regiment, no devices in bed, sleeping in a dark environment with temperatures below 68 degrees, may read a book or magazine in bed, gentle yoga prior to bed, limit fluids 2 hours prior to bed. May diffuse essential oils. Migraine protocol: Rizatriptan at onset, Ajovy subcut monthly. Migraine cap, peppermint oil on temporal areas as needed. Monitor diet for Pseudo-gout, as Inflammatory markers were elevated, GUIDO ESR and CRP will evaluate for further management. F/U in 3 months. Coding Level of Care Code Est Pt Level 4 (85219) Diagnoses Sleep difficulties G47.9 Intractable migraine with aura without status migrainosus G43.119 Status migrainosus presence: without status migrainosus Intractability: intractable Insomnia, unspecified type G47.00 Insomnia type: unspecified Worsening headaches R51.9 Vertigo R42 Time Spent (min) 35 Comment Fragmented sleep patterns.
[2024-10-05 15:27] VITALS: PULSE 82; O2SAT 97; BMI 40.2
--- OUTSIDE RECORDS SUMMARY | 2024-10-05 18:16 | XMS_ITS | Patient Health Record ---
Author Organization [employer] [facility] Address [address] [place] [address] Support Name Relationship Address Phone TAMARA JACKSON Guarantor Unknown [phone] Reason For Referral No Information Medications Medication SIG (Take, Route, Frequency, Duration) Notes Start Date End Date Status Co Q-10 100MG 1 ORAL daily for -3 [facility] 09/24/2011 Active Flexeril 10MG 1 ORAL three times d aily for 10 [facility] 09/24/2011 Active Hyoscyamine Sulfate ER 0.125MG 1 ORAL twice daily for -3 [facility] 08/27/2011 Ac tive Motrin 600mg 1 TID for 20 [facility] 09/24/2011 Act freedom Vitamin D3 1000 IU 1 ORAL daily for -3 [facility] 09/24/2011 Active Problems Problem Type SNOMED Code ICD Code Onset Dates Problem Status W/U Status Risk Notes Problem Obesity (537406023) Obesity, unspecified (278.00) Active confirmed Major Problem Migraine (disorder) (23814714) Migraine, unspecified without mention of intractable migraine without mention of status migrainosus (346.90) Active confirmed Major Problem Asthma (disorder) (782011817) Asthma, unspecified, unspecified status (493.90) Active confirmed Major Problem Esophageal reflux (609210418) Esophageal reflux (530.81) Active confirmed Major Problem Backache (333061319) Unspecified backache (724.5) Active confirmed Diag Problem Pain in thoracic spine (863407459) Pain in thoracic spine (724.1) Active confirmed Diag Problem Lumbago (386146831) Lumbago (724.2) Active confirmed Diag Problem Chronic fatigue syndrome (22357704) Chronic fatigue syndrome (780.71) Active confirmed Major Problem Malaise and fatigue (082897501) Other malaise and fatigue (780.79) Active confirmed Diag Problem Lumbar sprain (822521133) Lumbar sprain and strain (847.2) Active confirmed Diag Plan Of Treatment No Information Insurance Providers Payer Name Payer Address Payer Phone Subscriber Number Group Number Insured Name Patient Relationship to Insured Coverage Start Date Coverage End Date [facility] [address] [facility] [place] [id number] TAMARA JACKSON Self - patient is the insured
--- OUTSIDE RECORDS SUMMARY | 2024-10-05 18:16 | XMS_ITS | Data Portability ---
Author Organization [place] - [facility] Allergy Address [address] [address] Care Team Providers Care Plastics Fabricator Name Role Phone ROMERO LUND Primary Care Provider Assessment Encounter Date Assessment Date Assessment LastModified by Organization Details LastModified Time 06/09/2024 06/09/2024 Patient has been managed for migraine with neurology. Discussed her symptoms involved right sided fullness as well as fluctuating hearing, tinnitus and general imbalance with no room spinning. While some of the symptoms overlap with M? ? ?ni? ? 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 , including 'globus hystericu s'; Note: Date Diagnosed : 07/26/2019 9:34 AM (F45.8) Not Available [facility] 4 02:15:22 Gastroeso phageal reflux disease without esophagit is 359626415 Active 2019 Gastro-es ophageal reflux disease without esophagit is; Note: Date Diagnosed : 07/26/2019 9:34 AM (K21.9) Not Available [facility] 4 02:16:05 Dysphagia 28927300 Active 2019 Other dysphagia ; Note: Date Diagnosed : 07/26/2019 9:39 AM (R13.19) Not Available [facility] 4 02:16:03 Pain of right temporoma ndibular joint 03016031518 315996 Active 2017 Arthralgi a of right temporoma ndibular joint; Note: Date Diagnosed : 11/20/2017 9:41 AM (M26.621) Not Available [facility] 4 02:15:58 Abnormal auditory perceptio n 76852610 Active 2023 Jasmin serrano [place] - [facility] 4 13:05:11 Dizziness and giddiness 838578408 Active 2023 LIBORIO VAZQUEZ MD [address] [place] [address], [place], [address] , [place] - [facility] 4 14:00:00 Chronic headache disorder 943198312 Active 2023 LIBORIO VAZQUEZ MD [address] [place] [address],[place] [address], [place], [address] , [place] - [facility] 14:00:08 Problem Notes None recorded. Procedures Surgical History Date Name Laterality Status Provider Name and Address Organization Details Recorded Time 06/09/2024 Comp Audio with Tymps (59990 & 58753) completed Jasmin Hall [place] - [facility] 06/09/2024 13:05:02 Imaging Results Imaging Date [...] mg tablet 06/09 completed Medicati on ID: [id number] D uration Value: 30 Brand Name: topirama te Send Method: E-Prescr ibed Sub s Allowed: subs OK [facility] topirama te Not Available Not [...] tion aerosol inhaler active Medicati on ID: [id number] B rand Name: albutero l sulfate Send [...] spray,jenny pension 06/08 completed Medicati on ID: [id number] D uration Value: 30 Brand Name: fluticas [...] unit) tablet 07/26 completed Medicati on ID: [id number] D uration Value: 30 Reason: () Brand [...] Updated DateTime 06/09/2024 151.13 cm 39.5 kg/m2 96761.88 g Alma Mendenhall [place] - [facility] 06/09/2024 13:40:10 Social History None recorded. [...] Disorder Y Anesthesia Complications N Heart Attack ([place]) N Other Skin Condition N Diabetes N [...] Diagnosis/Indication Diagnosis SNOMED-CT Code Diagnosis ICD10 Code Diagnosis Note [id number] LIBORIO VAZQUEZ MD [facility] [address] [address] 06/09/2024 12:24:19 06/09/2024 12:49:44 Abnormal auditory perception [id number] H93.299 Audiologic al evaluation results: Right ear: {{Normal N ormal through 2 kHz Mild M oderate Mo derately-s evere Kaitlin re Profoun d [facility] lly normal#}} {{hearing* hearing. sloping to a mild slopi ng to a moderate s loping to moderately severe slo ping to severe slo ping to profound f lat high frequency low frequency mid frequency cookie bite winter curve}} {{with* se nsorineura l hearing loss with condu ctive hearing loss with mixed hearing loss with}} {{excellen t* good fa ir poor no measurable }} word recognitio n. Left ear: {{Normal N ormal through 2 kHz Mild M oderate Mo derately-s evere Kaitlin re Profoun d [facility] lly normal#}} {{hearing* hearing. sloping to a mild slopi ng to a moderate s loping to moderately severe slo ping to severe slo ping to profound f lat high frequency low frequency mid frequency cookie bite winter curve}} {{with* se nsorineura l hearing loss with condu ctive hearing loss with mixed hearing loss with}} {{excellen t* good fa ir poor no measurable }} word recognitio n. Tympanomet ry: Right Ear:{{Type A* Type As Type Ad Type C Type C, shallow & rounded Ty pe B Type B with large volume Cou ld not maintain a hermetic seal}} Left Ear:{{Type A* Type As Type Ad Type C Type C, shallow & rounded Ty pe B Type B with large volume Cou ld not maintain a hermetic seal}} Dizziness and giddiness 616894065 R42 Chronic he adache disorder 037957493 G44.89 Health Concerns Section Related Observation LastModified by Organization Detai ls LastModified Time None Recorded Concern Status LastModified by Organization Details LastModified Time None Recorded Advance Directives Directive None Recorded Payers Encounter Date Sequence Insurance Name Policy Number Policy Hopper Covered Member ID Hopper Member ID Guarantor Name 06/09/2024 1 [facility] [id number] Lela Verdin [id number] Lela Verdin Notes Date Note Type Note [...] 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
--- OUTSIDE RECORDS SUMMARY | 2024-10-05 18:16 | XMS_ITS | Clinical Summary ---
Author Organization [facility] it Address [address] [place] [address] Care Team Providers Care Rn Building Name Role Phone Unavailable Primary Care Provider Unavailabl e Social History Tobacco Use Types Packs/Day Years Used Date Smoking Tobacco: Never Assessed Comments Unknown Sex and Gender Information Value Date Recorded Sex Assigned at Not on file Legal Sex Female 11:45 PM EST Gender Identity Not on file Sexual Orientation Not on file Plan of Treatment Health Maintenance Due Date Last Done Comments Breast Cancer Screening 1979 DTaP,Tdap,and Td Vaccines (1 - Tdap) 1998 Hepatitis B Vaccines (1 of 3 - 19+ 3-dose series) 1998 Cervical Cancer Screening: P ap Smear 2000 COVID-19 Vaccine (2023-2 5 season) 2024 Influenza Vaccine (#1) 2024 HIB Vaccines Aged Out No longer eligi ble based on patient's age to complete this topic HPV Vaccines Aged Out No longer eligi ble based on patient's age to complete this topic Hepatitis A Vaccines Aged Out No long er eligible based on patient's age to complete this topic IPV Vaccines Aged Out No longer eligi ble based on patient's age to complete this topic MMR Vaccines Aged Out No longer eligi ble based on patient's age to complete this topic Meningococcal ACWY Vaccine Aged Out N o longer eligible based on patient's age to complete this topic Meningococcal B Vacine Aged Out No lo nger eligible based on patient's age to complete this topic Pneumococcal Vaccine: Pediat rics (0 to 5 Years) and At-Risk Patients (6 to 64 Years) Aged Out No longer eligible b ased on patient's age to complete this topic RSV Immunization Patients Un korey 20 months Aged Out No longer eligible b ased on patient's age to complete this topic Varicella Vaccines Aged Out No longer eligible based on patient's age to complete this topic
--- OUTSIDE RECORDS SUMMARY | 2024-10-05 18:16 | XMS_ITS | Continuity of Care Document ---
Author Organization MONICA Esparza [facility], YEE Varg[place]se 1[address] Address [address] [place] [address] Care Team Providers Care Closed Circuit Screen Watcher Name Role Phone ROMERO LUND Primary Care Provider Assessment No assessment recorded. Plan of Treatment Reminders Order Date Submit Date Provider Last Modified By Organization Details Last Modified Time Details Appointments None recorde d. Lab None recorde d. Referral None recorde d. Procedures None recorde d. Surgeries None recorde d. Imaging XR, toe(s), 2 or more view - new pt 3 views left great toe rm 112 025 09/29/19 [email or web address] [facility] [address], [place], [address], 09:25:10 Medication Orders None recorde d. Patient TargetsNo targets recorded. Patient InstructionsNo instructions recorded. Reason for Referral None Reported. Results Created Date Observation Date Name Description Value Unit Range Abnormal Flag Note LastModifiedBy Organization Detail LastModifiedTime 09/25/19 25 09/11/2024 XR, foot, 2 view No observ ation record ed. [email or web address] [facility] [address], [place], [address], 09/27/2024 15:36:04 09/29/19 25 09/28/2024 XR, toe(s ), 2 or more view [email or web address]:/ [email or web address] ?Encry pted=s hAaTro YD8dLq bEUv6g %2BXZw aYqtaq 0bqfl% 2Fg9IQ a4ajBk vP9nXo QUaueC m3YtLR FvZlgJ JJ8mAn HZtai3 5f5024 AC0KqY n2EVKG uKiQtr MwF INTERFACE [employer] [address], [place], [address], 09/28/2024 08:41:30 09/29/19 25 09/28/2024 XR, toe(s ), 2 or more view [email or web address] ?Encry pted=s hAaTro YD8dLq bEUv6g %2BXZw aYqtaq 0bqfl% 2Fg9IQ a4ajBk vP9nXo QUaueC m3YtLR FvZlgJ JJ8mAn HZtai3 1p8804 AC0KqY n2EVKG uKiQtr MwF INTERFACE [facility] [address] [facility] [address], [place], [address], 09/28/2024 08:41:32 Result Notes None recorded. Procedures Surgical History Date Name Laterality Status Provider Name and Address Organization Details Recorded Time 4 Sports Shoulder completed Arslan Flor PA-C [address] [facility], [place], [address], [facility] 01/16/2024 08:36:21 4 Sports Shoulder 4&1 completed Salas Osman PA-C [address] [facility], [place], [address], [facility] 10/08/2023 15:40:51 7 Other completed [facility] 02/27/2024 14:23:03 Imaging Results None recorded. Procedure Notes None recorded. Medical Equipment None Reported. Allergies Allergen ID Allergen Name Allergen Category Reaction Reaction Severity Criticality Documentation Date Start Date Code Code System Note Provider Name and Address Organization Details Recorded Time 98439 acetamino phen / oxycodone medicatio n Not available Not available Not available 09/22/20232022 72937 3 RxNorm Not Available [facility] 4 12:57:11 89599 codeine medicatio n Not available Not available Not available 09/22/20232020 2670 RxNorm Not Available [facility] 4 12:57:11 Medications Name Sig Start Date Stop Date Status Note LastModified by Organization Details LastModified Time prednison e 10 mg tablet TAKE 1 TABLET BY MOUTH EVERY DAY active reduced to 7 MG Not Available Not Available Not Available prednison e 5 mg tablet TAKE 1 TABLET BY MOUTH EVERY DAY active Not Available Not Available No t Available alprazola m 0.25 mg tablet TAKE 1 TABLET BY MOUTH 30 MINUTES PRIOR TO MRI, MAY REPEAT ONCE 02/26 completed Not Available Not Available Not Available famotidin e 20 mg tablet TAKE 1 TABLET BY MOUTH 2 TIMES A DAY FOR 7 DAYS. active Not Available Not Available No t Available amitripty line 25 mg tablet TAKE [...] Not Available Not Available No t Available ibuprofen 600 mg tablet TAKE 1 TABLET BY MOUTH EVERY 6 HOURS NEEDED FOR PAIN active Not Available Not Available No t [...] Not Available Not Available No t Available rizatript an 5 mg tablet PLEASE SEE ATTACHED FOR DETAILED DIRECTIO NS active Not Available Not Available No t Available diclofena c 1 % topical gel APPLY 2 G TOPICALL Y 4 (FOUR) TIMES A DAY FOR 5 DAYS. active Not Available Not Available No t [...] and Address Organization Details Last Updated DateTime 09/28/2024 147.32 cm 41.4 kg/m2 46375.29 g [place] [facility] 09/28/2024 08:34:03 Social History Question Answer Notes LastModified by Organizat ion Details LastModified Time Tobacco Smoking Status Never Smoker [facility] 02/27/2024 14:23:03 How Many Times Per Week Do You Consume Alcohol? Less Than 1 Time Per Week [email or web address] Information not available 02/27/2024 Do You Or Have You Ever Used E-cigarettes Or Vape? Never Used Electronic Cigarettes [email or web address] Information not available 02/27/2024 What Is Your Relationship Status? Single [email or web address] Information not available 02/27/2024 Do You Use Any Illicit Or Recreational Drugs? No [email or web address] Information not available 02/27/2024 How Many Years Have You Smoked Tobacco? 0 [email or web address] Information not available 02/27/2024 Do You Or Have You Ever Used Any Other Forms Of Tobacco Or Nicotine? No [email or web address] Information not available 02/27/2024 Sex: Unknown Functional Status None recorded. Mental Status None recorded. Family History Nothing Reported. Medical History Condition Response Coronary Artery Disease N Anxiety/Depression Y Emphysema N COPD N Pacemaker N Vascular Disease N Heart Trouble N Gastrointestinal Disease N Autoimmune disease N Inflammatory Joint disease N Orthotics N Arthritis N Blood Clot N Acid Reflux (GERD) N Cancer N Stroke N Circulation Problems N Rheumatoid Arthritis N Arrhythmia N Headaches Y Fibromyalgia N Allergies/Hayfever N Breathing or lung disorders N Nerve Disorders N Thyroid Problems N Kidney/Bladder Problems N Anemia N Heart Attack (CA) N Cholesterol N Diabetes N Bleeding Disorder N Seizures/Epilepsy N AIDS/HIV N Congestive Heart Failure (CHF) N Asthma Y Peripheral Vascular Disease N Sleep Apnea N Hepatitis N Heart Disease N Pulmonary Embolism N Hypertension N Osteoporosis N Gynecological HistoryNo gynecological history recorded. Obstetrics History GPAL:G 0 P 0 0 0 0 Past Encounters Encounter ID Performer Location Encounter Start Date Encounter Closed Date Diagnosis/Indication Diagnosis SNOMED-CT Code Diagnosis ICD10 Code Diagnosis Note [id number] [facility] [address] [place] [address] 09/28/2024 08:22:11 09/28/2024 09:31:02 Pain in left foot 6910576885 98200 M79.672 Toe joint rigid 53948310 4 M20.22 Health Concerns Section Related Observation LastModified by Organization Detai ls LastModified Time None Recorded Concern Status LastModified by Organization Details LastModified Time None Recorded Payers Encounter Date Sequence Insurance Name Policy Number Policy Hopper Covered Member ID Hopper Member ID Guarantor Name 09/28/2024 1 [facility] [id number] Lela Verdin [id number] Lela Verdin 09/28/2024 2 [place] [facility] Lela Verdin [id number] Lela Verdin Notes Date Note Type Note Provider Name and Address Organization Details Recorded Time 09/28/2024 text/html I am seeing this patient under the supervision of Dr. Munoz who was available but who did not see the patient. HPI: Patient is a 44-year-old female presenting to the office today for evaluation of left great toe pain. Localizes the pain to the first MTP joint. Reports has been ongoing for the past few weeks. She went to an outside facility where they gave her an anti-inflammatory which seemed to help. Denies any history of gout. She is here today for orthopedic consultation. Past family, medical, social history and review of systems has been reviewed, updated and is located in the patient's chart. Examination: The patient is well appearing, alert and oriented x3 and in no acute distress. On inspection of the left foot and ankle, there is no edema, erythema, ecchymosis or deformity. Skin is intact, no open wounds. Patient is minimally tender around the dorsal aspect of the first MTP joint. Otherwise nontender about the foot and ankle. Range of motion is full and strength is intact. Neurovascularly intact distally. No gross instability. Calf is supple, nontender. Achilles tendon nontender, no palpable defect noted. X-rays ordered, obtained and reviewed independently today at [facility]: Three-view x-rays of the left great toe reveal hallux rigidus with dorsal spur. No acute fractures or dislocations noted. Impression: Left hallux rigidus Plan: I discussed my findings and the situation with the patient. We discussed potential treatment options at this time. She was provided with a Chapman's extension stiff insert. Patient like to hold off on cortisone injections for now. She will utilize anti-inflammatories for flareups. She will follow-up with us on an as-needed basis. If symptoms return or things worsen or change she will call the office. Patient understands and agrees with this plan. All questions were answered. Speech recognition nematology teacher software was used to create portions of this document. An attempt at proofreading has been made to minimize errors. Please call for corrections. Ellen Boateng PA-C [address] [facility], [place], [address], [facility] 09/28/2024 09:31:00 OBGyn Episode No OBEpisode recorded.
--- OUTSIDE RECORDS SUMMARY | 2024-10-05 18:16 | XMS_ITS | Data Portability ---
Author Organization MONICA Esparza [facility], [facility] Address [address] [place] [address] Care Team Providers Care Cytopathologist Name Role Phone KEVONROMERO Primary Care Provider Assessment No assessment recorded. Plan of Treatment Reminders Order Date Submit Date Provider Last Modified By Organization Details Last Modified Time Details Appointments None recorded. Lab None recorded. Referral None recorded. Procedures None recorded. Surgeries shoulder arthroscopy with subacromial decompressi on and acromioplas ty (SURG) 2023 025 [email or web address] 1 [facility], [address], [place], [address], 4 09:13:22 Imaging XR, toe(s), 2 or more view - new pt 3 views left great toe rm 112 2024 025 [facility], [address], [address], [place], [address], 5 09:25:10 XR, shoulder, 2 or more view 2023 024 nikko [facility], [address], [address], [place], [address], 4 11:20:35 Medication Orders None recorded. Patient [...] a4ajBk vP9nXo QUaueC m3YtLR FvZlgJ JJ8mAn HZtai3 6p0737 AC0Kpa nWGUqr eUC8mr 84%3D INTERFACE [facility] [address], [place], [address], 01/16/2024 08:48:03 01/16/20 24 01/16/2024 XR, shoul korey, 2 or more view [email or web address]:/ [email or web address] ?Encry pted=s hAaTro YD8dLq bEUv6g %2BXZw aYqtaq 0bqfl% 2Fg9IQ a4ajBk vP9nXo QUaueC m3YtLR FvZlgJ JJ8mAn HZtai3 0x3263 AC0Kpa nWGUqr eUC8mr 84%3D INTERFACE [facility] [address], [place], [address], 01/16/2024 08:48:05 06/02/20 24 06/01/2024 [facility] Access ion Number : [id number] Patien t Name: Velvet, Lela Medica l Record Number : [id number] Date of : 1979 Date of Exam: 2023 Referr ing Physic hamida: Anne-Marie Lee [address] [place] [address] Exam: MR Should er (C-) CPT 28157 - Left Room Descri ption: [facility] 3.0T Clinic al Histor y: Should er [...] is Mild supras pinatu s tendin osis Buck Sainz rd, MD, have review ed the images and report and concur with the reside nt, Anil grullon, titus gann. Electr onical ly Signed By: Buck Georeg rd, MD [email or web address] [facility] ([facility]) [address], [place], [address], 06/08/2024 07:47:00 09/25/19 25 09/11/2024 XR, foot, 2 view No observ ation record ed. [email or web address] [facility] [address], [place], [address], 09/27/2024 15:36:04 09/29/19 25 09/28/2024 XR, toe(s ), 2 or more view http:/ [email or web address] ?Encry pted=s hAaTro YD8dLq bEUv6g %2BXZw aYqtaq 0bqfl% 2Fg9IQ a4ajBk vP9nXo QUaueC m3YtLR FvZlgJ JJ8mAn HZtai3 3d3661 AC0KqY n2EVKG uKiQtr MwF INTERFACE [facility] [address], [place], [address], 09/28/2024 08:41:30 09/29/19 25 09/28/2024 XR, toe(s ), 2 or more view http:/ [email or web address] ?Encry pted=s hAaTro YD8dLq bEUv6g %2BXZw aYqtaq 0bqfl% 2Fg9IQ a4ajBk vP9nXo QUaueC m3YtLR FvZlgJ JJ8mAn HZtai3 9f7896 AC0KqY n2EVKG uKiQtr MwF INTERFACE [employer] [address], [place], [address], 09/28/2024 08:41:32 Result Notes None recorded. Procedures Surgical History Date Name Laterality Status Provider Name and Address Organization Details Recorded Time 4 Sports Shoulder completed Arslan Flor PA-C [address], [place], [address], [facility] 01/16/2024 08:36:21 4 Sports Shoulder 4&1 completed Salas Osman PA-C [address], [place], [address], [facility] 10/08/2023 15:40:51 7 Other completed [facility] 02/27/2024 14:23:03 Imaging Results Imaging Date Name Status LastModified by Organiz ation Details LastModified Time 01/16/2024 XR, shoulder, 2 or more view completed INTERFACE [employer] [address], [place], [address], 01/16/2024 08:48:03 01/16/2024 XR, shoulder, 2 or more view completed INTERFACE [facility] [address], [place], [address], 01/16/2024 08:48:05 06/01/2024 MRI, shoulder, w/o contrast completed [email or web address] [facility] ([facility]) [address], [place], [address], 06/08/2024 07:47:00 09/11/2024 XR, foot, 2 view completed [email or web address] [facility] [address], [place], [address], 09/27/2024 15:36:04 09/28/2024 XR, toe(s), 2 or more view completed INTERFACE [facility] [address], [place], [address], 09/28/2024 08:41:30 09/28/2024 XR, toe(s), 2 or more view completed INTERFACE [facility] [address], [place], [address], 09/28/2024 08:41:32 Procedure Notes None recorded. Medical Equipment None Reported. Allergies Allergen ID Allergen Name Allergen Category Reaction Reaction Severity Criticality Documentation Date Start Date Code Code System Note Provider Name and Address Organization Details Recorded Time 62077 acetamino phen / oxycodone medicatio n Not available Not available Not available 09/22/20232022 74729 3 RxNorm Not Available [facility] 4 12:57:11 11893 codeine medicatio n Not available Not available Not available 09/22/20232020 2670 RxNorm Not Available [facility] 4 12:57:11 Medications Name Sig Start Date [...] Updated DateTime 01/16/2024 147.32 cm 41.4 kg/m2 98117.29 g EDELMIRA JORGENSEN [facility] 01/16/2024 08:38:21 Date Recorded Body height Body mass index (BMI) Body weight Provider Name and Address Organization Details Last Updated DateTime 02/27/2024 147.32 cm 41.4 kg/m2 49047.29 g EDELMIRA JORGENSEN [facility] 02/27/2024 14:23:11 Date Recorded Body height Body mass index (BMI) Body weight Provider Name and Address Organization Details Last Updated DateTime 05/21/2024 147.32 cm 41.4 kg/m2 13141.29 g [place] [facility] 05/21/2024 13:59:57 Date Recorded Body height Body mass index (BMI) Body weight Provider Name and Address Organization Details Last Updated DateTime 06/28/2024 147.32 cm 41.4 kg/m2 36283.29 g [place] [facility] 06/28/2024 15:46:54 Date Recorded Body height Body mass index (BMI) Body weight Provider Name and Address Organization Details Last Updated DateTime 09/28/2024 147.32 cm 41.4 kg/m2 56349.29 g [place] [facility] 09/28/2024 08:34:03 Social History Question Answer Notes LastModified by Organizat ion Details LastModified Time Tobacco Smoking Status Never Smoker EDELMIRA JORGENSEN [facility] 02/27/2024 14:23:03 How Many Times Per Week Do You Consume Alcohol? Less Than 1 Time Per Week [email or web address] Information not available 02/27/2024 Do You Or Have You Ever Used E-cigarettes Or Vape? Never Used Electronic Cigarettes Information not available 02/27/2024 What Is Your Relationship Status? Single [email or web address] Information not available 02/27/2024 Do You Use Any Illicit Or Recreational Drugs? No [email or web address] Information not available 02/27/2024 How Many Years Have You Smoked Tobacco? 0 [email or web address] Information not available 02/27/2024 Do You Or Have You Ever Used Any Other Forms Of Tobacco Or Nicotine? No [email or web address] Information not available 02/27/2024 Sex: Unknown Functional Status None recorded. Mental Status None recorded. Family History Nothing Reported. Medical History Condition Response Allergies/Hayfever N Coronary Artery Disease N Breathing or lung disorders N Anxiety/Depression Y Emphysema N Nerve Disorders N Thyroid Problems N COPD N Pacemaker N Kidney/Bladder Problems N Anemia N Vascular Disease N Heart Trouble N Heart Attack ([place]) N Gastrointestinal Disease N Cholesterol N Diabetes [...] SNOMED-CT Code Diagnosis ICD10 Code Diagnosis Note [id number] AVERY Leigh [address] [place] [address] 10/08/2023 15:24:37 10/27/2023 10:50:50 Carpal tunnel syndrome of right wrist 0017074136 52456 G56.01 velcr [id number] AVERY Rhodes [address] [place] [address] 01/16/2024 08:31:45 01/16/2024 09:01:18 Calcific tendinitis of left shoulder 4288189411 15739 M75.32 4481016 AVERY Rhodes [address] [place] [address] 02/27/2024 14:14:21 03/25/2024 09:30:51 Calcific tendinitis of left shoulder 2036289588 92969 M75.32 [id number] MD [facility] [address] [place] [address] 05/21/2024 13:41:02 06/15/2024 13:39:09 Calcific tendinitis of left shoulder 5239396464 75684 M75.32 [id number] Anne-Marie Lee MD [facility] [address] [place] [address] 06/28/2024 15:43:08 07/27/2024 07:29:08 Impingement syndrome of right shoulder region 0320710195 31501 M75.42 [id number] AVERY Hall [address] [place] [address] 09/28/2024 08:22:11 09/28/2024 09:31:02 Pain in left foot 3097883474 28209 M79.672 Toe joint rigid 22619147 4 M20.22 Health Concerns Section Related Observation LastModified by Organization Detai ls LastModified Time None Recorded Concern Status LastModified by Organization Details LastModified Time None Recorded Advance Directives Directive None Recorded Payers Encounter Date Sequence Insurance Name Policy Number Policy Hopper Covered Member ID Hopper Member ID Guarantor Name 01/16/2024 2 [place] Lela M Verdin [id number] Lela M Verdin 01/16/2024 1 [facility] ([place] [id number] Lela M Verdin [id number] Lela M Verdin 02/27/2024 2 [place] Lela M Verdin [id number] Lela M Verdin 02/27/2024 1 [facility] ([place]) [id number] Lela M Verdin [id number] Lela M Verdin 05/21/2024 2 [place] Lela M Verdin [id number] Lela M Verdin 05/21/2024 1 [facility] ([place]) [id number] Lela M Verdin [id number] Lela M Verdin 06/28/2024 2 [place] Lela M Verdin [id number] Lela M Verdin 06/28/2024 1 [facility] ([place]) [id number] Lela M Verdin [id number] Lela M Verdin 09/28/2024 1 [facility] [id number] Llea M Verdin [id number] Lela M Verdin 09/28/2024 2 [place] [facility] Lela Verdin [id number] Lela Verdin Notes Date Note Type Note Provider Name and Address Organization Details Recorded Time 01/16/2024 text/html I am seeing the patient [...] prednisone. She has referral into see a director of restaurant.PAST MEDICAL/SURGICAL HISTORYCurrent medications per intake sheet.PHYSICAL FINDINGSThe [...] will follow up as symptoms require going forward.[facility] speech recognition wireless network engineer software was used to create portions of this document. An attempt at proofreading has been made to minimize errors. Please call for corrections Arslan Flor PA-C [address], [place], [address], [facility] 01/16/2024 08:59:18 02/27/2024 text/html I am [...] and is located in the patient? s chart.Examination:T he patient is well appearing and in no apparent distress. Alert and oriented x3. Gait is symmetric. Near normal active and passive range of motion of the shoulder. Pain with provocative maneuvers and with strength testing. Elbow, wrist and hand move well. Medical Device strength intact.X-rays from previous visit reviewed today at [facility] showing large amount of multiloculated calcific deposit posterior aspect of the humeral head.Impression: Calcific tendinosis of the left shoulderPlan: Patient has failed to respond to appropriate conservative measures. She is having recurrent pain and symptoms. Recommendation at this time is for surgical consultation. I have arranged an appointment with Dr. eLe to discuss arthroscopy and calcium removal. 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 Positive Yergason's. Positive Richfield's. Positive cross body adduction. Sensation intact in an axillary distribution. Fires EPL, FPL and intrinsics. Hand is warm and well-perfused. Imagin views of the left shoulder ordered and obtained at [facility] 01/16/2024 were reviewed during the visit. These demonstrate good preservation of glenohumeral and AC joint spaces. Calcium deposit adjacent to the far posterior greater tuberosity suggested on AP internal rotation view. Type II acromion. Humeral head centered on axillary view. 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 All of this will help me addiction treatment counselor her about what her surgery may entail and what her recovery will look like. We will plan to see the patient back once the MRI is done to review the results and talk about next steps based on the findings. [employer] speech recognition wireless network engineer software was used to create portions of this document. An attempt at proofreading has been made to minimize errors. Please call for corrections. 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 Positive Yergason's. Positive Richfield's. Positive cross body adduction. Sensation intact in an axillary distribution. Fires EPL, FPL and intrinsics. Hand is warm and well-perfused. Imagin views of the left shoulder ordered and obtained at [facility] 01/16/2024 were reviewed during the visit. These demonstrate good preservation of glenohumeral and AC joint spaces. Calcium deposit adjacent to the far posterior greater tuberosity suggested on AP internal rotation view. Type II acromion. Humeral head centered on axillary view. Left shoulder MRI performed at [facility] 06/01/2024 independently reviewed by me on Ortho [...] groove. No definite SLAP pathology. 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 [facility] speech recognition wireless network engineer software was used to create portions of this document. An attempt at proofreading has been made to minimize errors. Please call for corrections. Anne-Marie Lee MD [address], [place], [address], [facility] 06/28/2024 16:53:13 09/28/2024 text/html I am seeing this patient [...] ordered, obtained and reviewed independently today at [facility]: Three-view x-rays of the left great toe [...] plan. All questions were answered. Speech recognition wireless network engineer software was used to create portions of this document. An attempt at proofreading has been made to minimize errors. Please call for corrections. Ellen Boateng PA-C [address] [facility] [address], [place], [address], [facility] 09/28/2024 09:31:00 OBGyn Episode No OBEpisode recorded.
== END 2024-10-05 16:12 | disposition home or self-care (01) ==
LOC: HO.HSMS 15:23
PROVIDERS: PCP Physician Assistant; Visit Provider Physician Assistant Medical
DX: G47.9 Sleep disorder, unspecified (principal); G43.119 Migraine with aura, intractable, without status migrainosus; G47.00 Insomnia, unspecified; R51.9 Headache, unspecified; R42 Dizziness and giddiness
CPT/HCPCS: 99214

== ENCOUNTER → 2024-11-02 14:48 | Outpatient (BNVA) | payer OTHER, MEDICAID, SELFPAY | PROVIDERS: PCP Physician Assistant; Visit Provider Surgery ==

== ENCOUNTER → 2024-12-08 08:06 | Outpatient (REF) | payer OTHER, MEDICAID, SELFPAY | LOC: HO.SL 08:06 | PROVIDERS: PCP Nurse Practitioner Family; Visit Provider Physician Assistant Medical | DX: G47.19 Other hypersomnia (principal) | CPT/HCPCS: 95806 ==

== ENCOUNTER → 2024-12-08 08:25 | Outpatient (BNV) | payer OTHER, MEDICAID, SELFPAY | PROVIDERS: PCP Nurse Practitioner Family; Visit Provider Psychiatry & Neurology Neurology | DX: R06.83 Snoring (principal) | CPT/HCPCS: 95806 ==

== ENCOUNTER 2025-01-04 14:55 | Outpatient (AMB) | payer OTHER, MEDICAID, SELFPAY ==
--- NOTE | 2025-01-04 14:58 | MHC.OFFVIS ---
Vital Signs 01/04/25 14:59 Height 4 ft 11 in Weight 199 lb BMI 40.2 BP 112/76 Pulse 105 H Pulse Source Pulse Oximeter Pulse Oximetry (%) 98 Oxygen Delivery Method Room Air Intake Visit Reasons: 3 mo follow up Intake Note: Patient presents follow up Sleep/Migraine medication. WM seen 11/02, HST done 12/08(inconclusive. AHI-4, SILVA 90%. send for in-lab PSG). Allergies No Known Allergies Allergy (Verified 01/04/25 15:02) HPI Comments Details: 44-yr-old female presents for a f/u visit due to chronic migraines. November 2024 HST c/w AHI 3.4 and oxygen Nadirs to 90%, inconclusive. Will send for PSG Her insurance changed and she was unable to complete her PSG, has a prior h/o sleep apnea and feels well rested when she uses her cpap. She snores loudly at night and is fatigued most days due to fragmented sleep with 3-5 arousals at night.She has morning stiffness in the shoulders, hips and knees, bilaterally. She has Menieres disease, her ears feel full mainly R>L, as if there is fluid in her ears. She completed Vestibular Therapy for BPPV and now manages her diet meticulously avoids fast food, salt and caffeine intake. She has allergies and take OTC Zyrtec PRN. She has bruxism and now has a mouth-guard. Migraines: She has daily headaches 3-5x a week which evolve into migraines if not well managed by medications. They start with photophobia, phono-phobia, sensitivity to smells, dizziness, and blurry vision. Her eyelids become so heavy she has difficulty keeping them open. The pain is 8/10 to 10/10 starts in the back of the head L. sided and is tender to touch, and this can last through the night. She wakes up with l. sided neck tightness and muscle cramps which improves with Baclofen 10mg PO PRN and or Cyclobenzaprine 5mg po. She said her headaches were better managed on Emgality, she had less occurrences in a week about 1-2, and severity was less than 5-6/10, however since not having the Emgality she notices the frequency and severity has once again increased. 01/04/2025 We supplied her with 2-120mg auto-injector samples today in clinic. Lot # [id number], expiration date 01/26/2026. Her insurance denied Emgality. In April 2024 PA was not needed and Insurance plan covered her Ajovy until Sep 2024. She no longer has Ajovy. She says her migraines are better controlled on Ajovy, still 1-3 a month with Ajovy and now they have increased in frequency when she misses meals they are worse. Prior to starting Ajovy she was having headaches daily which would evolve into full blown migraines, throbbing with photophobia / phonophobia/ lasting 2 hours to several hours. Her vision is blurry and c/o of flashing lights, wavy lines when she goes out side into the sun, notices she is always needing to wear sunglasses and sees electric like flashes of light. She has a f/u with the opthamologist. Baseline headache characteristics: Aura: Sees floaters in bilateral eyes at onset of the headache. Sometimes has visual aura of right or left seeing wavy lines or kaleidoscope- lasts a minute or so. Headache: Mod-Severe throbbing, stabbing, pressure in left side- retro-orbital, forehead through occipital and neck region a/w Photophobia, phonophobia, allodynia, nausea, dizziness, difficulty concentrating, word finding difficulties- maybe slurred speech, fatigue, activity intolerance. samples given lot and dictate. [facility] Medical History Back pain Surgical History Hx of colonoscopy History of esophagogastroduodenoscopy (EGD) Hx of oral surgery History of thyroid surgery Family History Father Diabetes HTN (hypertension) Mother Diabetes HTN (hypertension) Social History Alcohol intake: never Patient Tobacco Use Status: Never used Tobacco Review of Systems Eyes Reports photophobia Physical Exam Vital Signs: Last Vital Signs Pulse 105 H 01/04/25 14:59 BP 112/76 01/04/25 14:59 Pulse Ox 98 01/04/25 14:59 Oxygen Delivery Method Room Air 01/04/25 14:59 BMI result Body Mass Index 40.2 Const General: cooperative and tired appearing Nutritional Appearance: obese Orientation/consciousness: patient oriented x3 HEENT Face and sinus: Yes face symmetric Eyes Pupils: Equal, round and reactive pupils present Direct Ophthalmoscopy: photophobia Resp Effort & Inspection: normal respiratory effort and able to speak in complete sentences Neuro General: patient oriented x3 and moves all extremities Cranial nerves: Yes Equal, round and reactive pupils present, Yes Normal accommodation reflex present, Yes Normal facial strength present, Yes Midline tongue present, Yes Ability to bilaterally rotate head present and Yes Ability to bilaterally elevate shoulders present Cognition (Neuro): normal cognition Gait exam (Neuro): Normal gait present Motor exam (neuro): Abnormal motor strength present and Abnormal muscle tone present Psych Appearance: grossly normal Speech and movement: Normal speech and movement present Attitude: cooperative Thought process: Normal thought process present Thought content: Normal thought content present Assessment & Plan Assessment & Plan (1) Excessive daytime sleepiness: Code(s): G47.19 - Other hypersomnia Category: Medical (2) Vertigo: Comment: DDX PMR? Dermatomyositis? RA/ Osteo Arthritis /psuedo- gout and gout? Fibromyalgia, MG Code(s): R42 - Dizziness and giddiness Category: Medical (3) Worsening headaches: Code(s): R51.9 - Headache, unspecified Category: Medical (4) Sleep difficulties: Code(s): G47.9 - Sleep disorder, unspecified Category: Medical (5) Migraine with aura: Code(s): G43.109 - Migraine with aura, not intractable, without status migrainosus Category: Medical Qualifiers: Status migrainosus presence: without status migrainosus Intractability: intractable Qualified Code(s): G43.119 - Migraine with aura, intractable, without status migrainosus Plan PSG fragmented sleep pattern, with multiple arousals and snoring. Mallampti score is 3. Migraines Continue Rizatriptan 10mg PO as a preventative, at onset of migraine, take 2 tablets and may wait 4 hours if it does not abort. Do not exceed more than 4 tablets in a 24 hour period, for a total dose of 20mg PO in a 24 hour period. Continue samples of Emgality 120mg x2 auto injector pens today in clinic. May use migraine cap (keep in freezer)and use as needed and lie down as needed, may use peppermint oil on temples as needed. Practice good sleep hygiene. Continue Magnesium 200mg po daily at bedtime. Start B6 200mg po daily at bedtime Pending approval of Agovy as a chronic migraine maintenance medication. BMI is elevated patient is on a strict diet for Menneires Disease and vertigo prevention. vertigo / dizziness continue Vestibular Therapy as needed. Orders: Orders RT PSG in-lab sleep study 01/04/25 G47.19 - Other hypersomnia Medications: Changed From magnesium citrate 200 mg PO DAILY migraines G43.119 - Migraine with aura, intractable, without status migrainosus To magnesium citrate takes 200mg daily 200 mg (2 x 100 mg) PO DAILY 180 caps 3RF migraines 3 months MDD 200mg G43.119 - Migraine with aura, intractable, without status migrainosus Refilled rizatriptan Take one tablet at the onset of migraine, if migraine does not abort may take one more tablet 4 hours later. Do not exceed more than 2 tablets in a 24 hour period. 5 mg PO Q2-4H PRN 14 tabs 6RF migraine headache 30 days Patient Instructions: Sleep Hygiene provided: set a scheduled bedtime and wake time to help regulate the circadian rhythm and balance the release of pituitary hormones. Sleep in a dark room, temperatures below 68 degrees, and no devices n bed. Limit caffeinated products 6 hours prior to bed, and limit fluids 2-4 hours prior to bed. Gentle night yoga, diffusing essential oils, and playing soft music can be relaxing. Coding Level of Care Code Est Pt Level 4 (49282) Diagnoses Excessive daytime sleepiness G47.19 Vertigo R42 Worsening headaches R51.9 Sleep difficulties G47.9 Intractable migraine with aura without status migrainosus G43.119 Status migrainosus presence: without status migrainosus Intractability: intractable Time Spent (min) 35 Comment not improving
[2025-01-04 14:59] VITALS: BP 112/76; PULSE 105; O2SAT 98; BMI 40.2
--- OUTSIDE RECORDS SUMMARY | 2025-01-04 17:21 | XMS_ITS ---
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 Name Role Phone Demetris Escobar Primary Care Provider LIZBETH Wagoner Unavailable [phone] Allergies Allergen (clinical drug ingredient) Drug/Non Drug [...] Active Encounters Encounter Location Date Provider Diagnosis [facility] [address] [address] 10/11/2024 LIZBETH SWANSON Plan Of Treatment No Information Progress Notes * Lela JACKSONDOB:1980 (44 yo F)Acc No.[id number]:10/11/2024 Consult note Patient:?Lela JACKSON Provider:?Lizbeth Horne DPM :1980???Age:44 Y???Sex:Female D ate:10/11/2024 Phone: Address: [place], [place]-[phone] Pcp:Demetris Escobar Subjective: * Chief Complaints: * ???1. Left foot bone spur. * Medical History:?Asthma due to sasonal allergies, Atypical chest pain, Chronic fatigue, Goiter, Joint pain, Abnormal cervical pap smear, Major depression, recurrent, Mastodynia, menstrual, left breast, Migraines, obesity class 1(BMI 30.0-39.9). * Surgical History:?left thyro id lobectomy 08/12/2016. * Family History:?Father: Bipo lar, Diabetes mellitus type two, high cholesterol, hypertension, thyroid disease.?Mother: blood clot, fibromyalgia, high cholesterol, Hyperlipidemia, hypertension, osteoporosis, sjoegren syndrome, stroke..?Maternal Grand Mother: schizophrenia.? breast cancer, stomach cancer. * Social History:?tobacco: never alcohol: rarely. * Medications:?Taking Rizatrip henson Benzoate 5 MG Tablet 1 tablet Orally Once a day , Taking predniSONE 5 MG Tablet 1 tablet with food or milk Orally Once a day , Taking Omeprazole 20 MG Capsule Delayed Release 1 capsule 1/2 to 1 hour before morning meal Orally Once a day , Taking Ajovy 225 MG/1.5ML Solution Prefilled Syringe 1.5 mL Subcutaneous * Allergies:?fruit: rash - All ergy, Percocet: Allergy, tylenol with codeine: Allergy. Objective: * Vitals:? Therapeutic Interventions: Assessment: Plan: * Treatment: * Billing Information: * Visit Code:? * Procedure Codes:? * Electronic signature of JENNY SWANSON D.P.M. on 01/04/2025 at 05:21 PM EDT Sign off status: Pending * Provider:?Lizbeth Horne DPM Date:?10/11 Generated for Matt helton/Carlita/Melyitting on:?01/04/2025 05:21 PM EDT
== END 2025-01-04 16:18 | disposition home or self-care (01) ==
LOC: HO.HSMS 14:56
PROVIDERS: PCP Physician Assistant; Visit Provider Physician Assistant Medical
DX: G47.19 Other hypersomnia (principal); R42 Dizziness and giddiness; R51.9 Headache, unspecified; G47.9 Sleep disorder, unspecified; G43.119 Migraine with aura, intractable, without status migrainosus
CPT/HCPCS: 99214

== ENCOUNTER 2025-04-28 09:19 | Outpatient (AMB) | payer MEDICAID, SELFPAY ==
[2025-04-28 09:30] VITALS: BP 120/88; PULSE 68; O2SAT 97; BMI 38.2
--- NOTE | 2025-04-28 09:30 | MHC.OFFVIS ---
Vital Signs 04/28/25 09:30 Height 4 ft 11 in Weight 189 lb BMI 38.2 BP 120/88 Blood Pressure Location Lt brachial Position Sitting Pulse 68 Pulse Source Pulse Oximeter Pulse Oximetry (%) 97 Oxygen Delivery Method Room Air Intake Visit Reasons: follow up Intake Note: Patient presents follow up Sleep/Migraine medication. No PSG. Per patient patient has about 3 migraine(stronger). Emgality lasting through whole month. Allergies No Known Allergies Allergy (Verified 04/28/25 09:35) HPI Comments Details: 44-yr-old female presents for a f/u visit due to chronic migraines. November 2024 HST c/w AHI 3.4 and oxygen Nadirs to 90%, inconclusive HST. Will evaluate with psg as she continues to have fragmented sleep and multiple night time arousals due to snoring and is chronically fatigued. Her migraines are about the same in frequency and severity, however last week she had one migraine and which migrated down the left side of her neck and lasted 10min. Her vision had changed then she sees the room as dimmer, darker with difficulty focusing on objects, and distinguishing textures of clothings. She denies slurred speech and weakness of the hands or arms, she took a shower and it resolved on its own. She has a fh+ for mom having a stroke in her 60s, I will evaluate her with a CT-scan. Her insurance changed and she was unable to complete her PSG, has a prior h/o sleep apnea and feels well rested when she uses her cpap. She has morning stiffness in the shoulders, hips and knees, bilaterally due to RA. She has Menieres disease, her ears feel full mainly R>L, as if there is fluid in her ears. She completed Vestibular Therapy for BPPV and now manages her diet meticulously avoids fast food, salt and caffeine intake. She has allergies and take OTC Zyrtec PRN. She has bruxism and now has a mouth-guard though does not use it due to fear of swallowing it. Migraines: She has daily headaches 3-5x a week which evolve into migraines if not well managed by Emgality once a month. They start with photophobia, phono-phobia, sensitivity to smells, dizziness, and blurry vision. Her eyelids become so heavy she has difficulty keeping them open. The pain is 8/10 to 10/10 it starts in the back of the head, L. sided and the area is tender to touch, as this can last through the night. She wakes up with l. sided neck tightness and muscle cramps which improves with Baclofen 10mg PO PRN and or Cyclobenzaprine 5mg po. She says her headaches are better managed on Emgality, she had less occurrences in a week about 1-2, and severity was less than 5-6/10 as this is more manageable. Episodic headaches 2-3x a week, she will take rizatriptan and they resolve completely within an hour or two. Baseline headache characteristics: Aura: Sees floaters in bilateral eyes at onset of the headache. Sometimes has visual aura of right or left seeing wavy lines or kaleidoscope- lasts a minute or so. Headache: Mod-Severe throbbing, stabbing, pressure in left side- retro-orbital, forehead through occipital and neck region a/w Photophobia, phonophobia, allodynia, nausea, dizziness, difficulty concentrating, word finding difficulties- maybe slurred speech, fatigue, activity intolerance. [facility] Medical History Back pain Surgical History Hx of colonoscopy History of esophagogastroduodenoscopy (EGD) Hx of oral surgery History of thyroid surgery Family History Father Diabetes HTN (hypertension) Mother Diabetes HTN (hypertension) Social History Alcohol intake: never Patient Tobacco Use Status: Never used Tobacco Review of Systems Eyes Reports photophobia Physical Exam Vital Signs: Last Vital Signs Pulse 68 04/28/25 09:30 BP 120/88 04/28/25 09:30 Pulse Ox 97 04/28/25 09:30 Oxygen Delivery Method Room Air 04/28/25 09:30 BMI result Body Mass Index 38.2 Const General: cooperative and tired appearing Nutritional Appearance: obese Orientation/consciousness: patient oriented x3 HEENT Face and sinus: Yes face symmetric Eyes Pupils: Equal, round and reactive pupils present Direct Ophthalmoscopy: photophobia Resp Effort & Inspection: normal respiratory effort and able to speak in complete sentences Neuro General: patient oriented x3 and moves all extremities Cranial nerves: Yes Equal, round and reactive pupils present, Yes Normal accommodation reflex present, Yes Normal facial strength present, Yes Midline tongue present, Yes Ability to bilaterally rotate head present and Yes Ability to bilaterally elevate shoulders present Cognition (Neuro): normal cognition Gait exam (Neuro): Normal gait present Motor exam (neuro): Abnormal motor strength present and Abnormal muscle tone present Psych Appearance: grossly normal Speech and movement: Normal speech and movement present Attitude: cooperative Thought process: Normal thought process present Thought content: Normal thought content present Results Reviewed Results Reviewed: MRI 11/2023 unremarkable study. HST January 2025 AHI is 3.5 and O2 Nadirs to 90%, inconclusive study will evaluate with PSG. Assessment & Plan Assessment & Plan (1) Excessive daytime sleepiness: Code(s): G47.19 - Other hypersomnia Category: Medical (2) Worsening headaches: Code(s): R51.9 - Headache, unspecified Category: Medical (3) Migraine with aura: Code(s): G43.109 - Migraine with aura, not intractable, without status migrainosus Category: Medical Qualifiers: Intractability: intractable Status migrainosus presence: without status migrainosus Qualified Code(s): G43.119 - Migraine with aura, intractable, without status migrainosus (4) Vertigo: Comment: pseudo - gout per Rheum Code(s): R42 - Dizziness and giddiness Category: Medical (5) Sleep difficulties: Code(s): G47.9 - Sleep disorder, unspecified Category: Medical Plan JULY r/o with PSG due to snoring and Mallampti score is 3. Snoring will f/u after her PSG, she has an oral appliance from [employer] for the bottom and is afraid she will swallow and choke on it at night. Episodic Migraines Continue Rizatriptan 10mg PO as a preventative, at onset of migraine, take 2 tablets and may wait 4 hours if it does not abort. Do not exceed more than 4 tablets in a 24 hour period, for a total dose of 40mg PO in a 24 hour period. Chronic Migraine Protocol Continue Emgality 120mg subcut [id number] May use migraine cap (keep in freezer)and use as needed and lie down as needed, may use peppermint oil on temples as needed. Practice good sleep hygiene, avoid triggers, stay well hydrated. Continue Magnesium 200mg po daily at bedtime. Start B6 200mg po daily at bedtime. BMI is elevated she is on a strict diet due to Meniere's Disease, she has seen PT for Epleys maneuvers and can perform them now to prevent vertigo / dizziness / nausea. Will continue Vestibular Therapy as needed. Orders: Orders RT PSG in-lab sleep study 04/28/25 G47.19 - Other hypersomnia CT head/brain wo IV con 04/28/25 G43.119 - Migraine with aura, intractable, without status migrainosus, R51.9 - Headache, unspecified Medications: Changed From mecobalamin (vitamin B12) allow to dissolve in mouth OR may chew lightly before swallowing 1,000 mcg PO DAILY To mecobalamin (vitamin B12) allow to dissolve in mouth OR may chew lightly before swallowing 1,000 mcg PO DAILY 60 ea 0RF 2 months Refilled magnesium citrate takes 200mg daily 200 mg (2 x 100 mg) PO DAILY 180 caps 3RF migraines 3 months MDD 200mg G43.119 - Migraine with aura, intractable, without status migrainosus rizatriptan Take one tablet at the onset of migraine, if migraine does not abort may take one more tablet 4 hours later. Do not exceed more than 2 tablets in a 24 hour period. 5 mg PO Q2-4H PRN 14 tabs 6RF migraine headache 30 days Patient Instructions: Sleep Hygiene provided: set a scheduled bedtime and wake time to help regulate the circadian rhythm and balance the release of pituitary hormones. Sleep in a dark room, temperatures below 68 degrees, and no devices n bed. Limit caffeinated products 6 hours prior to bed, and limit fluids 2-4 hours prior to bed. Gentle night yoga, diffusing essential oils, and playing soft music can be relaxing. Coding Level of Care Code Est Pt Level 4 (29237) Diagnoses Excessive daytime sleepiness G47.19 Worsening headaches R51.9 Intractable migraine with aura without status migrainosus G43.119 Intractability: intractable Status migrainosus presence: without status migrainosus Vertigo R42 Sleep difficulties G47.9
== END 2025-04-28 10:05 | disposition home or self-care (01) ==
LOC: HO.HSMS 09:19
PROVIDERS: PCP Physician Assistant; Visit Provider Physician Assistant Medical
DX: G47.19 Other hypersomnia (principal); R51.9 Headache, unspecified; G43.119 Migraine with aura, intractable, without status migrainosus; R42 Dizziness and giddiness; G47.9 Sleep disorder, unspecified
CPT/HCPCS: 99214

== ENCOUNTER → 2025-04-28 09:19 | Outpatient (BNVA) | payer OTHER, SELFPAY | PROVIDERS: PCP Physician Assistant; Visit Provider Physician Assistant Medical | DX: G47.19 Other hypersomnia (principal); G43.119 Migraine with aura, intractable, without status migrainosus; R42 Dizziness and giddiness | CPT/HCPCS: 99212 ==

== ENCOUNTER → 2025-05-26 20:30 | Outpatient (REF) | payer OTHER, SELFPAY ==
--- OUTSIDE RECORDS SUMMARY | 2024-10-11 03:00 | XMS_ITS ---
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 Name Role Phone Demetris Escobar Primary Care Provider HAFSA Wagoner Unavailable [phone] Allergies Allergen (clinical drug ingredient) Drug/Non Drug Allergy documented on EMR Reaction Allergy Type Onset Date Status Fruit fruit (uncoded) rash Allergy Acti ve acetaminophen / codeine tylenol with cod eine (uncoded) Unknown Allergy Active acetaminophen / oxycodone Percocet Unknown Drug Allergy Active REASON FOR VISIT Left foot bone spur Medications Medication SIG (Take, Route, Frequency, Duration) Notes Start Date End Date Status Rizatriptan Benzoate 5 MG 1 tablet Orally Once a day Active predniSONE 5 MG 1 tablet with food o r milk Orally Once a day Active Omeprazole 20 MG 1 capsule 1/2 to 1 h our before morning meal Orally Once a day Active Ajovy 225 MG/1.5ML 1.5 mL Subcutaneous Active Encounters Encounter Location Date Provider Diagnosis [facility] [address] [address] 10/11/2024 HAFSA SWANSON Plan Of Treatment No Information Progress Notes * Lela JACKSONDOB:1980 (45 yo F)Acc No.[id number]:10/11/2024 Consult note Patient: Lela GOODMAN Provider: Sherrell Horne DPNayan :1980 A ge:44 Y S ex:Female Date:10/11/2024 Phone: Address: [place], [place]-[address] Pcp:Demetris Escobar Subjective: * Chief Complaints: * 1 . Left foot bone spur. * Medical History: A sthma due to sasonal allergies, Atypical chest pain, Chronic fatigue, Goiter, Joint pain, Abnormal cervical pap smear, Major depression, recurrent, Mastodynia, menstrual, left breast, Migraines, obesity class 1(BMI 30.0-39.9). * Surgical History: l eft thyroid lobectomy 08/12/2016. * Family History: F ather: Bipolar, Diabetes mellitus type two, high cholesterol, hypertension, thyroid disease.?Mother: blood clot, fibromyalgia, high cholesterol, Hyperlipidemia, hypertension, osteoporosis, sjoegren syndrome, stroke.. M aternal Grand Mother: schizophrenia. breast cancer, stomach cancer. * Social History: t obacco: never alcohol: rarely. * Medications: T aking Rizatriptan Benzoate 5 MG Tablet 1 tablet Orally Once a day , Taking predniSONE 5 MG Tablet 1 tablet with food or milk Orally Once a day , Taking Omeprazole 20 MG Capsule Delayed Release 1 capsule 1/2 to 1 hour before morning meal Orally Once a day , Taking Ajovy 225 MG/1.5ML Solution Prefilled Syringe 1.5 mL Subcutaneous * Allergies: f ruit: rash - Allergy, Percocet: Allergy, tylenol with codeine: Allergy. Objective: * Vitals: Therapeutic Interventions: Assessment: Plan: * Treatment: * Billing Information: * Visit Code: * Procedure Codes: * Electronic signature of JENNY SWANSON D.P.M. on 05/26/2025 at 09:36 PM EST Sign off status: Pending * Provider: Sherrell Horne DPM Date: 0 10/11/2024 Generated for Matt helton/Carlita/Carine on: 07/26/2024 09:36 PM EST
--- OUTSIDE RECORDS SUMMARY | 2025-05-20 22:59 | XMS_ITS | Continuity of Care Document ---
Author Organization [facility] Address [address] [place] [address]- Care Team Providers Care Assistant Professor Of Dietetics Name Role Phone Demetris Murillo Primary Care Physician Encounter [facility] Date(s): 04/20/25 - 05/20/25 [facility] [address] [place] [address]- Encounter Type: Triage Allergies, Adverse Reactions, Alerts [...] B adult vaccine 07/21/97 Given 1Result Comment: [facility] [id number] 2Result Comment: [facility] [id number] Medications Emgality 0 Refills, Maintenance, 04/20/25 7:50:00 AM EDT, Partial fill upon patient request if the prescription is for a schedule II opioid drug. Start Date: 04/20/25 Status: Ordered Medication Dispense Status: Completed Total Allowed Fills: 1 Fills Dispensed: 0 omeprazole 40 mg oral enteric coated capsule 1 capsule = 40 mg, By Mouth, Daily, # 90 capsule, 0 Refills, Maintenance, 04/20/25 11:51:00 AM EDT, EC Capsule, [id number], Partial fill upon patient request if the prescription is for a schedule II opioid drug., 170, cm, 04/20/25 7:46:00 EDT, Height, 93.2, kg, 07/19/24 21:24:00 EST, Dry Weight Start Date: 04/20/25 Status: Ordered Medication Dispense Status: Completed Quantity: 90.0 Unit: capsule Total Allowed Fills: 1 Fills Dispensed: 0 rizatriptan 5 mg oral tablet 1 tablet = 5 mg, By Mouth, Daily, PRN Rx'd by [facility], 0 Refills, Maintenance, 07/20/24 11:17:00 AM EST, Partial fill upon patient request if the prescription is for a schedule II opioid drug. Start Date: 07/20/24 Status: Ordered Medication Dispense Status: Completed Total Allowed Fills: 1 Fills Dispensed: 0 Problem List Condition Confirmation Course Effective Dates Status Health St atus Informant Asthma due to seasonal allergies Confirmed Active Chronic fatigue Confirmed Active Goiter Confirmed Active History of abnormal cervical Pap smear Confirmed Active HLD (hyperlipidemia) Confirmed Active Joint pain Confirmed Active Meniere disease of right ear Confirmed Active Migraines Confirmed Active Obesity (BMI 30-39.9) Confirmed Active Fatty liver Confirmed Active Social History Social History Type Response Sexual Sexually involved in last 6 months: No. Smoking Status Never (less than 100 in lifetime) entered on: 03/14/21 Sex Sex Representation Female (finding) Patient Care team information Care Team Personnel Name: Demetris Murillo Position: S PCO Associate Professional Member Role: PCP Address: [address] [place] [id number] Telecom: Care Team Related Persons Name: OJ BURGOS Name: XAVIER JACKSON Name: DIMAS STANLEY Insurance Providers Guarantor name: TAMARA JACKSON Health Plan Information #: 1 Payer: [facility] Payer Identifier: NA Member Number: [id number] Group Number: [id number] Subscriber Identifier: [id number] Relationship to Subscriber: self Coverage Type: Medicaid (Managed Care) Coverage Verification Date: NA Telecom: NA Address:
--- OUTSIDE RECORDS SUMMARY | 2025-05-22 23:59 | XMS_ITS | Continuity of Care Document ---
Author Organization [facility] Address [address] [place] [address]- Care Team Providers Care Sack Filler Name Role Phone Demetris Murillo Primary Care Physician Encounter [facility] Date(s): 04/22/25 - 05/22/25 [facility] [place] [address]- Encounter Type: Triage Allergies, Adverse Reactions, Alerts [...] B adult vaccine 07/21/97 Given 1Result Comment: [facility] [id number] 2Result Comment: [facility] [id number] Medications Emgality 0 Refills, Maintenance, 04/20/25 7:50:00 [...] mg, By Mouth, Daily, PRN Rx'd by [facility], 0 Refills, Maintenance, 07/20/24 11:17:00 AM [...] Associate Professional Member Role: PCP Address: [address] [place] [id number] Telecom: Care Team Related Persons Name: OJ BURGOS Name: XAVIER JACKSON Name: DIMAS STANLEY Insurance Providers Guarantor name: TAMARA JACKSON Health Plan Information #: 1 Payer: [facility] Payer Identifier: NA Member Number: [id number] Group Number: [id number] Subscriber Identifier: [id number] Relationship to Subscriber: self Coverage Type: Medicaid (Managed Care) Coverage Verification Date: NA Telecom: NA Address:
--- OUTSIDE RECORDS SUMMARY | 2025-05-26 21:36 | XMS_ITS | Patient Health Record ---
Author Organization [facility] Address [address] [place] [address] Support Name Relationship Address Phone TAMARA JACKSON Guarantor Unknown [phone] Reason For Referral No Information Medications Medication SIG (Take, Route, Frequency, Duration) Notes Start Date End Date Status Co Q-10 100MG 1 ORAL daily; Durati on: -3 Elkin-MJ 09/24/2011 Active Flexeril 10MG 1 ORAL three times d aily; Duration: 10 Elkin- 09/24/2011 Active Hyoscyamine Sulfate ER 0.125MG 1 ORAL twice daily; Duration: -3 Elkin-MJ 08/27/2011 Active Motrin 600mg 1 TID; Duration: 20 Elkin- 09/24/2011 Active Vitamin D3 1000 IU 1 ORAL daily; Durati on: -3 Elkin-MJ 09/24/2011 Active Problems Problem Type SNOMED Code ICD Code Onset Dates Problem Status W/U Status Risk Notes Problem Obesity (177264448) Obesity, unspecified (278.00) Active confirmed Major Problem Migraine (disorder) (20056111) Migraine, unspecified without mention of intractable migraine without mention of status migrainosus (346.90) Active confirmed Major Problem Asthma (disorder) (462236349) Asthma, unspecified, unspecified status (493.90) Active confirmed Major Problem Esophageal reflux (761633132) Esophageal reflux (530.81) Active confirmed Major Problem Backache (668778057) Unspecified backache (724.5) Active confirmed Diag Problem Pain in thoracic spine (235143915) Pain in thoracic spine (724.1) Active confirmed Diag Problem Lumbago (247404586) Lumbago (724.2) Active confirmed Diag Problem Chronic fatigue syndrome (50099375) Chronic fatigue syndrome (780.71) Active confirmed Major Problem Malaise and fatigue (609302199) Other malaise and fatigue (780.79) Active confirmed Diag Problem Lumbar sprain (293625990) Lumbar sprain and strain (847.2) Active confirmed Diag Plan Of Treatment No Information Insurance Providers Payer Name Payer Address Payer Phone Subscriber Number Group Number Insured Name Patient Relationship to Insured Coverage Start Date Coverage End Date [facility] [address] [facility] [place] [id number] TAMARA JACKSON Self - patient is the insured
--- OUTSIDE RECORDS SUMMARY | 2025-05-26 21:36 | XMS_ITS | Patient Health Record ---
Author Organization [facility] Address [address] [place] [address] Care Team Providers Care Canal Equipment Maintenance Supervisor Name Role Phone Demetris Escobar Primary Care Provider HAFSA Wagoner Unavailable [phone] Allergies Allergen (clinical drug ingredient) Drug/Non Drug Allergy documented on EMR Reaction Allergy Type Onset Date Status Fruit fruit (uncoded) rash Allergy Acti ve acetaminophen / codeine tylenol with cod eine (uncoded) Unknown Allergy Active acetaminophen / oxycodone Percocet Unknown Drug Allergy Active Reason For Referral No Information Medications Medication [...] Ajovy 225 MG/1.5ML 1.5 mL Subcutaneous Active Plan Of Treatment No Information Insurance Providers Payer Name Payer Address Payer Phone Subscriber Number Group Number Insured Name Patient Relationship to Insured Coverage Start Date Coverage End Date [facility] [address] [address] [place] [phone] [id number] Lela Verdin Self - patient is the insured Medical (General) History Medical History History ICD Code asthma due to sasonal allergies atypical chest pain chronic fatigue goiter joint pain abnormal cervical pap smear major depression, recurrent mastodynia, menstrual, left breast migraines obesity class 1(BMI 30.0-39.9) Surgical History Surgery Date(Month/Year) left thyroid lobectomy 08/12/2016
--- OUTSIDE RECORDS SUMMARY | 2025-05-26 21:36 | XMS_ITS | Encounter Summary ---
Author Organization [facility] Address [address] [address] Phone Care Team Providers Care Landscape Horticulture Instructor Name Role Phone Demetris Escobar Primary Care Provider + [phone] Encounter Details Date Type Department Care Team (Late st Contact Info) Description 04/18/2025 Procedure [facility], Ct Scan - [address] [address] Social History Tobacco Use Types Packs/Day Years Used Date Smoking Tobacco: Never Passive Smoke Exposure: Never Smokeless Tobacco: Never Alcohol Use Standard Drinks/Week Comments Not Currently 0 (1 standard drink = 0.6 oz pur e alcohol) Education Answer Date Recorded Are you interested in more education? Not on sofía e 10/29/2023 Are you concerned about learning? Not on file 10/29/2023 No 10/29/2023 No 10/29/2023 Food Answer Date Recorded Within the past 6 months we worried whether our food would run out before we got money to buy more. Never True 04/18/2025 Within the past 6 months the food we bought just didn't last and we didn't have enough money to get more. Never True Residential Stability Answer Date Recor ded What is your housing situation today? I have nohemy sing 04/18/2025 How many times have you move d in the past 12 months? Zero (I did not move) 04/18/2025 Paying for Meds Answer Date Recorded Do you have trouble paying for medicines? No 04/18/2025 Paying Utility Bills Answer Date Record ed Do you have trouble paying your heating or elect ricity bill? No 04/18/2025 Transportation Answer Date Recorded Has the lack of transportati on kept you from medical appointments or from getting medications? No 04/18/2025 Digital Access Answer Date Recorded No 04/18/2025 Yes 04/18/2025 Do you have reliable internet access at home? Ye s 04/18/2025 Do you have a device (e.g., phone, tablet, computer) with a working camera? Yes 04/18/2025 Intimate Partner Violence Answer Date R ecorded Are you denied basic needs s uch as food, clothing, or medical care? No 04/18/2025 In the past 12 months have y ou been in a relationship with a person who hurts, threatens, or tries to control you? No 04/18/2025 Are you denied basic needs s uch as food, clothing, or medical care? No 04/18/2025 In the past 12 months have y ou been in a relationship with a person who hurts, threatens, or tries to control you? No 04/18/2025 Comments No Sex and Gender Information Value Date Recorded Sex Assigned at Female 04/20/2024 2:28 PM EDT Legal Sex Female 11:27 AM EDT Gender Identity Female 04/20/2024 2:28 PM EDT Sexual Orientation Straight 04/18/2025 12 :47 PM EDT documented as of this encounter Functional Status * Calculated C-SSRS Risk Score (Lifetime/Recent) Answer Date of Assessment Author No Risk Indicated 04/18/2025 12:47 PM EDT Jennifer Drake RN * [place] Suicide Severity Rating Scale (Screener/Recent Self-Report) Question Answer Date of Assessment Author 1. Wish to be (Past 1 Month) No 025 12:47 PM EDT Jennifer Bourgeois, RN 2. Non-Specific Active Suici nikita Thoughts (Past 1 Month) No 04/18/2025 12:47 PM EDT Rayshawn Bourgeois RN 6. Suicidal Behavior (Lifetime) No 12:47 PM EDT Jennifer Bourgeois RN documented as of this encounter Plan of Treatment Upcoming Encounters Date Type Department Care Team (Late st Contact Info) Description 07/08/2025 9:10 AM EST Office Visit [facility] [place] [address] Juliane Charles MD, MPH [address], [address] [place] [address] [email or web address] documented as of this encounter Visit Diagnoses Not on filedocumented in this encounter Care Teams Landscape Horticulture Instructor Relationship Specialty Start Date End Date Demetris Escobar PA [address] [place] [address] PCP - General Physician Sales Person 10/29/23 documented as of this encounter Additional Source Comments The information contained in this document represents components of the legal health record. It is not the complete legal health record.[facility]
--- OUTSIDE RECORDS SUMMARY | 2025-05-26 21:36 | XMS_ITS | Clinical Summary ---
Author Organization [facility] Address [address] [place] [address] Phone Care Team Providers Care Turner Machine Operator Name Role Phone Demetris Escobar Primary Care Provider Allergies Active Allergy Reactions Criticality Noted Date Comments Acetaminophen-Codeine 12/12/2023 Other Reaction(s): Unknown Other Rash Low 04/18/2025 Oxycodone-Acetaminophen 12/12/2023 Raw Fruit Rash Low 12/12/2023 in raw state per pt Medications rizatriptan (MAXALT) 5 MG tablet Take 5 mg by mouth as needed. 4 Active albuterol 90 mcg/actuation inhaler Inhale 2 puffs into the lungs every 6 (six) hours as needed for wheezing. Active omeprazole (PRILOSEC) 20 MG capsule Take 20 mg by mouth as needed. Active MULTIVITAMIN ORAL Take by mouth daily. Active cholecalciferol (VITAMIN D3) 25 MCG (1,000 unit) tablet Take 1,000 Units by mouth daily. Active MAGNESIUM ORAL Take by mouth daily. Active diclofenac sodium (VOLTAREN) 1 % Gel Apply 2 g topically 4 (four) times a day for 5 days. 40 g 5 Active ibuprofen (ADVIL,MOTRIN) 600 MG tablet Take 1 tablet (600 mg total) by mouth every 6 (six) hours as needed for pain (specific location in comments). 20 tablet 5 Active celecoxib (CELEBREX) 200 MG capsule Take 1 capsule by mouth every morning. 5 Active cyclobenzaprine (FLEXERIL) 10 MG tablet Take 1 tablet by mouth 2 (two) times a day. 5 Active fluticasone propionate (FLONASE) 50 mcg/actuation nasal spray 1 spray by Nasal route daily. 5 Active Active Problems Problem Noted Date Diagnosed Date Groin pain, left 12/27/2024 Assessment & Plan (12/27/2024 9:24 AM EDT): Baseline plain film Polyarthralgia 07/28/2024 Overview (12/27/2024): Sudden onset 12/2023, ESR 39 (baseline 35) RF and anti-CCP neg; neg on repeat 07/2024 Mom with rheumatoid arthritis Assessment & Plan (12/27/2024 9:25 AM EDT): Moderate symptomatic benefit with current celecoxib. DDx includes seronegative rheumatoid arthritis and fibromyalgia; less likely acute CPPD in the absence of acutely swollen joints. We discussed trial of duloxetine and/or alternative oral NSAID, with the caveat that it may exacerbate her reflux. Alternatively, empiric hydroxychloroquine for 3 to 6 months is an option, though I am less convinced it is appropriate without objective evidence of underlying inflammatory arthritis. Written information on hydroxychloroquine provided for patient review today. She will consider her options and contact me with her decision regarding how she would like to proceed. Assessment & Plan (07/28/2024 2:18 PM EST): PMR essentially ruled out in patient less than 50 yrs of age. DDx includes [seronegative] / early rheumatoid arthritis and acute pseudogout. Trial decrease prednisone dose from 7.5 to 5 mg daily; further taper +/- addition of nbDMARD versus colchicine pending lab findings and clinical course. Elevated sed rate 07/28/2024 Overview (12/27/2024): ESR 35 (01/2023) 39 (12/2023) 29 (02/2024 on prednisone) 17 (11/2024 off prednisone for approximately 2 months) Assessment & Plan (12/27/2024 9:22 AM EDT): There remains no specific objective evidence to confirm underlying inflammatory arthritis at this time. Patient reports recurrence of initial symptoms as of December 10, when she had repeat labs drawn. She will have repeat labs today or at her convenience for trend. Assessment & Plan (07/28/2024 2:15 PM EST): Mild / chronic ESR elevation not specific to confirm underlying rheum dx and needs to be interpreted within entire clinical context. Anticipate further normalization of ESR on repeat today given long-term prednisone rx. Calcium deposits in tendon and bursa 07/28/2024 Overview (07/28/2024): Left shoulder per [facility]; intra-articular steroid injections lost efficacy and patient has deferred planned arthroscopy No trauma hx Assessment & Plan (07/28/2024 2:16 PM EST): Recent MRI requested for my review; reports Ca deposition hx and sudden onset of apparently inflammatory process raises question of CPPD / acute pseudogout. CPPD disease would be unusual in a 44 y.o. woman w/o underlying endocrinopathy. Written information on CPPD provided for patient reference today. Encounters Date Type Department Care Team Description 04/18/2025 4:25 PM EDT Ancillary Procedure [facility], Ultrasound [address] [address] Haylie Kincaid PA-C 04/18/2025 2:57 PM EDT - 04/18/2025 7:57 PM EDT Emergency [facility] [address] [place] [id number] Discharge Disposition: Home or Self Care 04/18/2025 Procedure Pass [facility], Ct Scan - [address] [address] from Last 3 Months Family History Medical History Relation Comments Bipolar disorder Father Diabetes type II Father Hypertension Father Thyroid disease Father Schizophrenia Maternal Grandmother Breast cancer Mother Fibromyalgia Mother Hyperlipidemia Mother Hypertension Mother Osteoporosis Mother Sjogren's syndrome Mother Stroke Mother Relation Status Comments Father Maternal Grandmother Mother Alive Social History Tobacco Use Types Packs/Day Years Used Date Smoking Tobacco: Never Passive Smoke Exposure: Never Smokeless Tobacco: Never Tobacco Cessation:Counseling Given: Not Answered Alcohol Use Standard Drinks/Week Comments Not Currently [...] Orientation Straight 04/18/2025 12 :47 PM EDT Last Filed Vital Signs Vital Sign Reading Time Taken Comments Blood Pressure 119/66 04/18/2025 6:55 PM EDT Pulse 74 04/18/2025 6:55 PM EDT Temperature 36.6 C (97.8 F) 04/18/2025 6:55 PM EDT Respiratory Rate 18 04/18/2025 6:55 PM EDT Oxygen Saturation 100% 04/18/2025 6:55 PM EDT Inhaled Oxygen Concentration - - Weight 85.7 kg (189 lb) 04/18/2025 12:48 PM EDT Height 149.9 cm (4' 11 ) 04/18/2025 12:48 PM EDT Body Mass Index 38.17 04/18/2025 12:48 PM EDT Plan of Treatment Upcoming Encounters Date Type Department Care Team (Late st Contact Info) Description 07/08/2025 9:10 AM EST Office Visit [facility] Rheumatology [address] [place] [address] Juliane Charles MD, MPH [facility] [address] [place] [address] [email or web address] Health Maintenance Due Date Last Done Comments Adult Td,Tdap Booster 1980 LIPID PANEL 1979 DEPRESSION SCREENING 1991 HEPATITIS C SCREENING 1997 HIV ONE-TIME SCREENING (18-6 5 YEARS) 1997 COLOGUARD 2024 COLONOSCOPY 2024 COLORECTAL CANCER SCREENING 2024 FIT TEST 2024 FOBT 2024 SIGMOIDOSCOPY 2024 VIRTUAL COLONOSCOPY 2024 INFLUENZA VACCINE (#1) 2025 2, 04/20/2021, 04/05/2020 COVID-19 VACCINE (2024-2 6 season) 2025 02/01/2022, 12/28/2020, 12/01/2020 MAMMOGRAM 11/05/2025 11/06/2023, 05/06/2023 PAP SMEAR 12/11/2026 12/12/2023 SCREENING FOR DIABETES 04/18/2028 04/18/2025 SMOKING STATUS SCREENING (On ce After 26 Yrs) Completed 04/18/2025 HEPATITIS A VACCINES Aged Out No long er eligible based on patient's age to complete this topic HIB VACCINES Aged Out No longer eligi ble based on patient's age to complete this topic MENINGOCOCCAL VACCINES (ACWY) Aged Out No longer eligible based on patient's age to complete this topic MENINGOCOCCAL VACCINES (B) Aged Out N o longer eligible based on patient's age to complete this topic PNEUMOCOCCAL VACCINES (0-49 years) Aged Out No longer eligible b ased on patient's age to complete this topic Medical Devices Not on file Procedures Procedure Name Priority Date/Time Associated Diagnosis Comments CT ABDOMEN/PELVIS WITH CONTRAST Routine 04/18/2025 5:50 PM EDT US BEDSIDE Routine 04/18/2025 4:21 PM EDT URINALYSIS WITH REFLEX TO URINE CULTURE STAT 04/18/2025 3:00 PM EDT LIPASE STAT 04/18/2025 1:32 PM EDT LFTS (HEPATIC PANEL) STAT 04/18/2025 1:32 PM EDT HCG, SERUM QUALITATIVE STAT 04/18/2025 1:32 PM EDT BASIC METABOLIC PANEL (BMP) STAT 04/18/2025 1:32 PM EDT CBC AND DIFFERENTIAL STAT 04/18/2025 1:32 PM EDT PAP TEST Routine 12/12/2023 12:00 AM EDT HM MAMMOGRAPHY Routine 11/06/2023 9:23 AM EDT from Last 3 Months or Most Recently Relevant to Health Maintenance Results * CT ABDOMEN/PELVIS WITH CONTRAST (04/18/2025 5:50 PM EDT) Anatomical Region Laterality Modality Abdomen, Pelvis Computed Tomogra phy 04/18/2025 7:21 PM EDT Impressions 04/18/2025 7:33 PM EDT No acute abnormality in the abdomen or pelvis. Narrative 04/18/2025 7:[address] ABDOMEN/PELVIS WITH CONTRAST Referring clinician's provided indication for this examination in [facility]: * Abdominal pain, acute, nonlocalized TECHNIQUE: Multidetector-row CT of the abdomen and pelvis was performed after administration of intravenous contrast using tailored dose modulation techniques. Images were reconstructed in the axial, coronal, and sagittal planes. COMPARISON: None available. FINDINGS: Lower Chest: No consolidation or pleural effusions. Liver: A subcentimeter size hypodensity in the right hepatic lobe that is too small to characterize, statistically benign. Mild diffuse hepatic steatosis. Biliary: Normal gallbladder. No biliary ductal dilatation. Spleen: No splenomegaly or focal lesions. Pancreas: Normal. No masses or ductal dilatation. Adrenal Glands: Normal. No nodules. Kidneys/Ureters: Normal. No solid masses, stones, or hydronephrosis. Bowel: Appendix not visualized, no secondary signs of appendicitis. No abnormal dilatation or wall thickening. Peritoneum/Retroperitoneum: Trace pelvic free fluid, likely physiological for the patient's age. No free air. Lymph Nodes: No lymphadenopathy. Pelvic Organs/Bladder: No mass. Partially distended urinary bladder. Vessels: No abdominal aortic aneurysm. Bones/Soft Tissues: No significant abnormality. Procedure Note Jose Verde MBBS - 04/18/2025 CT ABDOMEN/PELVIS WITH CONTRAST Referring clinician's provided indication for this examination in [facility]: *Abdominal pain, acute, nonlocalized TECHNIQUE: Multidetector-row CT of the abdomen and pelvis was performedafter administration of intravenous contrast using tailored dosemodulation techniques. Images were reconstructed in the axial, coronal,and sagittal planes. COMPARISON: None available. FINDINGS: Lower Chest: No consolidation or pleural effusions. Liver: A subcentimeter size hypodensity in the right hepatic lobe that istoo small to characterize, statistically benign. Mild diffuse hepaticsteatosis. Biliary: Normal gallbladder. No biliary ductal dilatation. Spleen: No splenomegaly or focal lesions. Pancreas: Normal. No masses or ductal dilatation. Adrenal Glands: Normal. No nodules. Kidneys/Ureters: Normal. No solid masses, stones, or hydronephrosis. Bowel: Appendix not visualized, no secondary signs of appendicitis. Noabnormal dilatation or wall thickening. Peritoneum/Retroperitoneum: Trace pelvic free fluid, likely physiologicalfor the patient's age. No free air. Lymph Nodes: No lymphadenopathy. Pelvic Organs/Bladder: No mass. Partially distended urinary bladder. Vessels: No abdominal aortic aneurysm. Bones/Soft Tissues: No significant abnormality. IMPRESSION: No acute abnormality in the abdomen or pelvis. us Haylie Kincaid PA-C IMG CT ABD/PELVIS Fin al Result * US BEDSIDE (04/18/2025 4:21 PM EDT) Anatomical Region Laterality Modality Ultrasound Narrative 04/18/2025 4:21 PM EDT Олег Parsons MD 04/19/2025 10:52 AM Bedside Ultrasound Date/Time: 04/18/2025 4:21 PM Performed by: Haylie Kincaid PA-C Authorized by: Haylie Kincaid PA-C Exam Type: Aorta, Renal and Biliary Aorta Exam Findings & Impression: Indications: patient with upper abdominal pain Aorta Diameter (cm): the entire abdominal aorta from the SMA to the distal aorta was visualized as less than 3 cm in diameter Iliacs Diameter (cm): The iliacs were visualized as less than 1.5 cm in diameter Overall Impression: negative Renal Exam Findings & Impression: Indications: patient with abdominal pain Right Kidney: the right kidney was visualized and hydronephrosis was not present Left Kidney: the left kidney was visualized and hydronephrosis was not present Overall Impression: negative Biliary Exam Findings & Impression: Indications: patient with abdominal pain Gallstones: the gallbladder was visualized and gallstones were not present Gallbladder Wall Thickening: the gallbladder was visualized and the gallbladder wall was not thickened Pericholecystic Fluid Present: the gallbladder was visualized and pericholecystic fluid was not present Sonographic Gilbert's: the gallbladder was visualized and a Sonogrphic Gilbert's sign was not present Overal Impression: negative Images: Images Saved: Yes Accession Number: [id number] Haylie Kincaid PA-C IMG POINT OF CARE EXA MS Final Result * Urinalysis w/reflex Urine Culture (04/18/2025 3:00 PM EDT) COLOR Yellow Yellow [facility] CLARITY HAZY [facility] GLUCOSE Negative Negative [facility] BILI Negative Negative [facility] KETONES Negative Negative [facility] SPECIFIC GRAVITY 1.015 1.005 - 1.030 [facility] BLOOD Negative Negative [facility] PH 6.0 5.0 - 8.0 [facility] Protein-UA Negative Negative [facility] NITRITE Negative Negative [facility] Leukocyte esterase, ur Negative Negative [facility] Urine (Urine) 04/18/2025 3:0 0 PM EDT 04/18/2025 3:31 PM EDT [employer] DO LAB URINE ORDERABLES Final Resu lt Performing Organization Address [facility] Co de Phone Number [address] [address] * HCG, serum qualitative (04/18/2025 1:32 PM EDT) HCG, QUALITATIVE Negative Negative IU/L [facility] Blood 04/18/2025 1:32 PM EDT 04/18/2025 1:48 PM EDT [employer] DO LAB BLOOD BKR ORDERABLES Final Result Performing Organization Address [facility] Co de Phone Number [address] [address] * LFTs (hepatic panel) (04/18/2025 1:32 PM EDT) ALKALINE PHOSPHATASE 57 39 - 117 U/L [facility] TOTAL BILIRUBIN 0.8 0.0 - 1.2 mg/dL [facility] DIRECT BILIRUBIN 0.2 0.0 - 0.2 mg/dL [facility] Bilirubin (Indirect) 0.6 0 - 1.5 mg/dL [facility] AST 18 0 - 37 U/L [facility] ALT 11 0 - 40 U/L [facility] TOTAL PROTEIN 7.7 6.5 - 8.0 g/dL [facility] ALBUMIN 4.1 3.9 - 4.8 g/dL [facility] GLOBULIN 3.6 1 - 4.8 g/dL [facility] A/G Ratio 1.14 1.00 - 4.80 RATIO [facility] Blood 04/18/2025 1:32 PM EDT 04/18/2025 1:48 PM EDT [facility] DO LAB BLOOD BKR ORDERABLES Final Result Performing Organization Address City/State/[facility] Co de Phone Number [address] [address] * CBC and differential (04/18/2025 1:32 PM EDT) WBC 6.98 4.00 - 11.00 K/uL [facility] RBC 5.10 4.00 - 5.20 M/uL [facility] HGB 15.0 12.0 - 16.0 g/dL [facility] HCT 44.4 36.0 - 46.0 % [facility] PLT 264 150 - 450 K/uL [facility] MCV 87.1 80.0 - 100.0 [facility] MCH 29.4 27.0 - 31.0 pg [facility] MCHC 33.8 32.0 - 36.0 g/dL [facility] RDW 13.2 11.5 - 14.5 % [facility] MPV 9.5 8.4 - 12.0 [facility] NRBC 0.00 0.00 /100 WBCs [facility] ABSOLUTE NRBC 0.00 0.00 K/uL [facility] DIFF METHOD Auto [facility] NEUTS 54.1 48.0 - 76.0 % [facility] LYMPHS 36.1 18.0 - 41.0 % [facility] MONOS 7.0 4.0 - 11.0 % [facility] EOS 1.6 0.0 - 5.0 % [facility] BASOS 0.9 0.0 - 1.5 % [facility] Granulocytes, immature (%) 0.3 0.0 - 0.9 % [facility] ABSOLUTE NEUTS 3.78 1.92 - 7.60 K/uL [facility] ABSOLUTE LYMPHS 2.52 0.72 - 4.10 K/uL [facility] ABSOLUTE MONOS 0.49 0.16 - 1.10 K/uL [facility] ABSOLUTE EOS 0.11 0.00 - 0.50 K/uL [facility] ABSOLUTE BASOS 0.06 0.00 - 0.15 K/uL [facility] Granulocytes, immature 0.02 0.00 - 0.09 K/uL [facility] Blood 04/18/2025 1:32 PM EDT 04/18/2025 1:48 PM EDT [facility] [employer] LAB BLOOD BKR ORDERABLES Final Result Performing Organization Address City/[facility]/ZIP Co de Phone Number [address] [address] * Lipase (04/18/2025 1:32 PM EDT) LIPASE 18 16 - 63 U/L [facility] Blood 04/18/2025 1:32 PM EDT 04/18/2025 1:48 PM EDT [facility] [employer] LAB BLOOD BKR ORDERABLES Final Result [address] [address] * Basic metabolic panel (04/18/2025 1:32 PM EDT) SODIUM 137 133 - 146 mmol/L [facility] CHLORIDE 103 96 - 108 mmol/L [facility] POTASSIUM 4.1 3.3 - 5.1 mmol/L [facility] CO2 21 21 - 35 mmol/L [facility] BUN 10 6 - 19 mg/dL [facility] CREATININE 0.70 0.5 - 1.5 mg/dL [facility] GLUCOSE 89 70 - 99 mg/dL [facility] CALCIUM 9.5 8.4 - 10.3 mg/dL [facility] EGFR 109 >59 mL/min/1.7 3m2 [facility] Comment:Estimated glomerular filtration rate calculated using the CKD-EPI refit equation. ANION GAP 17 10 - 20 mmol/L [facility] Blood 04/18/2025 1:32 PM EDT 04/18/2025 1:48 PM EDT Mata Spicer [employer] DO LAB BLOOD BKR ORDERABLES Final Result Performing Organization Address City/State/[facility] [place] [address] * Pap Test (12/12/2023 12:00 AM EDT) Report [address] [address] Lacemaker: Elva Barry MD VISITING PROFESSOR Cytology Report FINAL DIAGNOSIS A. PAP SMEAR (THIN PREP) CE: SPECIMEN ADEQUACY: Satisfactory for evaluation; transformation zone present. INTERPRETATION: NEGATIVE FOR INTRAEPITHELIAL LESION OR MALIGNANCY. Reactive changes. This specimen was analyzed by the automated ThinPrep Imaging System ([employer] and manually rescreened by a chain mender and/or pathologist. Electronically Signed Out By: MD Socorro Porter CT(ASCP) By his/her signature above, the pathologist listed as making the Final Diagnosis certifies that he/she has personally reviewed this case and confirmed or corrected the diagnosis. The Pap test is a screening test primarily for squamous cancers and precursors and has associated false-negative and false-positive results. New technologies such as liquid-based preparations may decrease but will not eliminate all false-negative results. Regular sampling and follow-up of unexplained clinical signs and symptoms are recommended to minimize false negative results. PROCEDURES/ADDENDA HPV Testing (Requested) Ordered Date: 12/16/2023 A. PAP SMEAR (THIN PREP) CE: Human Papilloma Virus Test NEGATIVE for high-risk Human Papilloma Virus types 16, 18, 45 and the Other high risk probe set (Includes 31, 33, 35, 39, 51, 52, 56, 58, 59, 66, 68) Note: Testing performed by [employer] HR-HPV analysis. Clinical correlation is advised. This HPV test was performed at [facility], [address] [place] [address]. This test has been FDA approved for both SurePath and ThinPrep cervical cytology specimens. The accuracy and precision of this test for all other specimen sources has been verified in the Cytopathology Laboratory of the [facility] and has not been cleared or approved by the U.S. Food and Drug Administration. Clinical correlation is advised. CLINICAL HISTORY Date of Last Menstrual Period: 11-10-2023 Other Clinical Conditions: Screening Pap SPECIMEN SOURCE A: PAP SMEAR (THIN PREP) CE Patient Name: TAMARA JACKSON : 1980 (Age: 43) Sex: F Institution: [facility] Location: [facility] Date of Collection: 12/12/2023 Date of Reported: 12/18/2023 15:30 Results to: Pilar Nagel MD [facility] Final Diagnosis A. PAP SMEAR (THIN PREP) CE: SPECIMEN ADEQUACY: Satisfactory for evaluation; transformation zone present. INTERPRETATION: NEGATIVE FOR INTRAEPITHELIAL LESION OR MALIGNANCY. Reactive changes. This specimen was analyzed by the automated ThinPrep Imaging System ([employer] and manually rescreened by a chain mender and/or pathologist. [facility] Gross Description [facility] Results\Interp retation A. PAP SMEAR (THIN PREP) CE: Human Papilloma Virus TestNEGATIVE for high-risk Human Papilloma Virus types 16, 18, 45 and the Other high risk probe set (Includes 31, 33, 35, 39, 51, 52, 56, 58, 59, 66, 68)Note: Testing performed by Edmundo Medina [employer] HR-HPV analysis. Clinical correlation is advised. This HPV test was performed at [facility], [address] [place] [address]. This test has been FDA approved for both SurePath and ThinPrep cervical cytology specimens. The accuracy and precision of this test for all other specimen sources has been verified in the Cytopathology Laboratory of the [facility] and has not been cleared or approved by the U.S. Food and Drug Administration. Clinical correlation is advised. [facility] Conversion Type (Conversion Source) 12/12/2023 12/16/2023 10:05 AM EDT us Pilar Nagel MD CYTOLOGY ORDERABLES Edited Resul t - Final [address] [address] * MAMMOGRAPHY FOR RESULT ENTRY ONLY (11/06/2023 9:23 AM EDT) us Demetris [facility] [employer] Final Res ult from Last 3 Months or Most Recently Relevant to Health Maintenance Insurance [facility] [place] [address] [facility] [id number] Care Teams Turner Machine Operator Relationship Specialty Start Date End Date Demetris Escobar PA [address] [facility] [place] [address] PCP - General Physician Cut Press Operator 10/29/23 Additional Source Comments The information contained in this document represents components of the legal health record. It is not the complete legal health record.[facility]
--- OUTSIDE RECORDS SUMMARY | 2025-05-26 21:36 | XMS_ITS | Clinical Summary ---
Author Organization [employer] [facility] Address [address] [place] [address] Care Team Providers Care Emery Wheel Molder Name Role Phone Demetris Escobar Primary Care Provider [phone] Encounters Date Type Department Care Team Description 03/28/2025 Telephone Gastroenterology - [address] [facility] [address] [place] [phone] Mc Rick MD from Last 3 Months Social History Tobacco Use Types Packs/Day Years Used Date Smoking Tobacco: Never Assessed Comments Unknown Sex and Gender Information Value Date Recorded Sex Assigned at Not on file Legal Sex Female 11:45 PM EST Gender Identity Not on file Sexual Orientation Not on file Plan of Treatment Upcoming Encounters Date Type Department Care Team (Late st Contact Info) Description 10/04/2025 1:20 PM EDT Office Visit Gastroenterology - [address] [facility] [address] [facility] [address] [place] [address] [phone] Irma Hill PA [address] [place] [id number] Health Maintenance Due Date Last Done Comments Breast Cancer Screening 1980 Colorectal Cancer Screening: Colonoscopy 1980 DTaP,Tdap,and Td Vaccines (1 - Tdap) 1998 Hepatitis B Vaccines (1 of 3 - 19+ 3-dose series) 1998 Cervical Cancer Screening: P ap Smear 2000 Depression Screening 07/21/2024 COVID-19 Vaccine (1 - 2023-2 5 season) 2025 Influenza Vaccine (#1) 2025 HIV Screening 03/28/2025 Hepatitis C Screening 03/28/2025 Social Influencers of Health Screening 03/28/2025 RSV Immunization Adult Patie nts (1 - 1-dose 75+ series) 2054 HIB Vaccines Aged Out No longer eligi [...] age to complete this topic Meningococcal B Vaccine Aged Out No l onger eligible based on patient's age to complete this topic Pneumococcal Vaccine: Pediat rics (0 to 5 Years) and At-Risk Patients (6 to 49 Years) Aged Out No longer eligible b ased on patient's age to complete this topic RSV Immunization Patients Un korey 20 months Aged Out No longer eligible b ased on patient's age to complete this topic Varicella Vaccines Aged Out No longer eligible based on patient's age to complete this topic Insurance MEDICAID - [place] Care Teams Emery Wheel Molder Relationship Specialty Start Date End Date Demetris Escobar PA [address] [place] [address] PCP - General Internal Medicine 04/18/25
--- OUTSIDE RECORDS SUMMARY | 2025-05-26 21:37 | XMS_ITS | Data Portability ---
Author Organization [place] - [facility], Allergy Address [address] [address] Care Team Providers Care City Maintenance Manager Name Role Phone ROMERO LUND Primary Care Provider [phone] Assessment Encounter Date Assessment Date Assessment LastModified by Organization Details LastModified Time 06/09/2024 06/09/2024 Patient has been managed for migraine with neurology. Discussed her symptoms involved right sided fullness as well as fluctuating hearing, tinnitus and general imbalance with no room spinning. While some of the symptoms overlap with M ni re's disease, she does not have any low-frequency [...] Details Recorded Time Otalgia of right ear 5123035742 Active 2017 Otalgia, right ear; Note: Date Diagnosed : 11/20/2017 9:39 AM (H92.01) Not Available [facility] 4 02:16:02 Otorrhea of right ear 38996012178 54855 Active 2017 Otorrhea, right ear; Note: Date Diagnosed : 11/20/2017 9:39 AM (H92.11) Not Available [facility] 4 02:16:03 Pain of right temporoma ndibular joint 33881494868 820213 Active 2017 Arthralgi a of right temporoma ndibular joint; Note: Date Diagnosed : 11/20/2017 9:41 AM (M26.621) Not Available [facility] 4 02:15:58 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 , including 'globus hystericu s'; Note: Date Diagnosed : 07/26/2019 9:34 AM (F45.8) Not Available [facility] 4 02:15:22 Gastroeso phageal reflux disease without esophagit is 005819848 Active 2019 Gastro-es ophageal reflux disease without esophagit is; Note: Date Diagnosed : 07/26/2019 9:34 AM (K21.9) Not Available [facility] 4 02:16:05 Dysphagia 14781989 Active 2019 Other dysphagia ; Note: Date Diagnosed : 07/26/2019 9:39 AM (R13.19) Not Available Critical [facility] hospital 4 02:16:03 Abnormal auditory perceptio n 47120650 Active 2023 Jasmin serrano [place] - [facility] 4 13:05:11 Dizziness and giddiness 413238960 Active 2023 LIBORIO VAZQUEZ MD [address] [place] [address], [place], [address] , [facility] - [facility] 4 14:00:00 Chronic headache disorder 208432519 Active 2023 LIBORIO VAZQUEZ MD [address], [address] , [place] - [facility] 14:00:08 Problem Notes None recorded. Procedures Surgical History Date Name Laterality Status Provider Name and Address Organization Details Recorded Time 06/09/2024 Comp Audio with Tymps - 41540 & 11254 completed Jasmin Hall [place] - [facility] 06/09/2024 13:05:02 Imaging Results None recorded. [...] mg tablet 06/09 completed Medicati on ID: [id number] D uration Value: 30 Brand Name: topirama [...] tion aerosol inhaler active Medicati on ID: [id number] B rand Name: albutero l sulfate Send [...] spray,jenny pension 06/08 completed Medicati on ID: [id number] D uration Value: 30 Brand Name: fluticas [...] unit) tablet 07/26 completed Medicati on ID: [id number] D uration Value: 30 Reason: () Brand [...] Updated DateTime 06/09/2024 151.13 cm 39.5 kg/m2 28462.88 g Alma Mendenhall [place] - [facility] 06/09/2024 13:40:10 Social History None recorded. [...] Disorder Y Anesthesia Complications N Heart Attack ([place]) N Other Skin Condition N Diabetes N Rhinitis N Bleeding Disorder N Food Allergy Y Arthritis N Hearing Loss Y Hyperlipidemia N Cancer N Stroke N Dementia N Nasal polyps N Asthma Y High Cholesterol N Sleep Disorder Y GERD/Reflux Y Liver Disease N Headaches Y Fibromyalgia Y Hypertension N Speech Delay N Kidney Disease N Gynecological HistoryNo gynecological history recorded. Obstetrics History GPAL:G 0 P 0 0 0 0 Past Encounters Encounter ID Performer Location Encounter Start Date Encounter Closed Date Diagnosis/Indication Diagnosis SNOMED-CT Code Diagnosis ICD10 Code Diagnosis IMO Codes Diagnosis Note [id number] LIBORIO VAZQUEZ MD [facility] [address] [address] 06/09/2024 12:24:19 06/09/2024 12:49:44 Abnormal auditory perception 64313735 H93.299 Audiologic al evaluation results: Right ear: Essentiall y normal hearing with excellent word recognitio n. Left ear: Essentiall y normal hearing with excellent word recognitio n. Tympanomet ry: Right Ear:Type A Left Ear:Type A Dizziness and giddiness 798610127 R42 Chronic he adache disorder 625338535 G44.89 Health Concerns Section Related Observation LastModified by Organization Detai ls LastModified Time None Recorded Concern Status LastModified by Organization Details LastModified Time None Recorded Advance Directives Directive None Recorded Payers Insurance Date Sequence Insurance Name Policy Number Policy Hopper Covered Member ID Hopper Member ID Guarantor Name 06/09/2024 2 [place] [facility] Lela Verdin [id number] Lela Verdin 11/01/2024 1 [facility] (PP[facility] [id number] Lela Verdin [id number] Lela Verdin Notes Date Note Type Note Provider Name and Address Organization Details Recorded Time 06/09/2024 text/html ROS as noted in the HPI 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
== END ==
LOC: HO.SL 20:30
PROVIDERS: PCP Physician Assistant; Visit Provider Physician Assistant Medical
DX: G47.19 Other hypersomnia (principal)
CPT/HCPCS: 95810

== ENCOUNTER → 2025-05-26 21:28 | Outpatient (BNV) | payer OTHER, SELFPAY | PROVIDERS: PCP Physician Assistant; Visit Provider Psychiatry & Neurology Neurology | DX: R06.83 Snoring (principal) | CPT/HCPCS: 95810 ==